=== PATIENT | male | born 1955 | race Caucasian/White ===

== ENCOUNTER 2021-07-11 10:18 | Outpatient (REF) | payer OTHER, SELFPAY | END 2021-07-11 10:19 | disposition home or self-care (01) | LOC: HO.HMGCLDS 10:18 | PROVIDERS: PCP Internal Medicine; Visit Provider Internal Medicine | DX: Z20.822 Contact with and (suspected) exposure to COVID-19 (principal) | CPT/HCPCS: C9803; U0003; U0005 ==

== ENCOUNTER 2025-05-08 23:40 | Inpatient (IN) | payer MEDICARE, SELFPAY ==
--- NOTE | 2025-05-08 | ECG_ITS ---
Test Reason : FALL Blood Pressure : */* mmHG Vent. Rate : 51 BPM Atrial Rate : * BPM P-R Int : * ms QRS Dur : 84 ms QT Int : 478 ms P-R-T Axes : * 17 54 degrees QTcB Int : 440 ms Atrial fibrillation with slow ventricular response Abnormal ECG No previous ECGs available Referred By: Generic ED Physician Electronically Signed By: TERESA LOPEZ MD
--- NOTE | ~2025-05-08 | CT_ITS ---
CLINICAL HISTORY: fall CT cervical spine without contrast Comparison: None provided Findings: Mild motion artifact in the upper cervical spine. Multilevel degenerative change of the cervical spine. There is mild anterolisthesis of C2 on C3 as well as C3 on C4. No acute fractures or dislocations. Visualized intracranial contents are unremarkable. Soft tissues of the neck are normal. No consolidation or effusion at the lung apices. IMPRESSION: No acute findings. This document has been electronically signed by: Jose Carty MD on 05/09/2025 01:23:10
--- NOTE | ~2025-05-08 | US_ITS ---
EXAMINATION: US ABDOMEN LIMITED HISTORY: transaminitis TECHNIQUE: Real-time grayscale ultrasound imaging of the right upper quadrant was performed and images were reviewed. COMPARISON: There are no prior studies available for comparison. FINDINGS: Liver: The right lobe of the liver measures 15.3 cm in size. The left lobe of the liver measures 11.1 cm in size. The liver demonstrates increased echotexture, consistent with steatosis. No focal mass or intrahepatic biliary ductal dilatation is identified. There is normal hepatopedal flow in the portal vein. Gallbladder and biliary tree: The gallbladder is unremarkable, without evidence of calculi, wall thickening, or pericholecystic fluid. There is no sonographic Hanna sign. The common bile duct is normal in caliber measuring 4 mm. Right Kidney: The right kidney measures 12.5 cm in length. The right kidney is unremarkable, without evidence of masses, hydronephrosis, or calculi. Pancreas: The pancreas is obscured by bowel gas. Abdominal aorta and inferior vena cava: The visualized portions of the abdominal aorta and inferior vena cava are normal in caliber. There is no free fluid in the right upper quadrant. US/US abdomen limited IMPRESSION: Hepatic steatosis. The pancreas is not visualized. Electronically signed by: Laci Hou MD 05/09/2025 08:05 AM EDT
--- NOTE | ~2025-05-08 | MR_ITS ---
EXAMINATION: MR BRAIN WITHOUT IV CONTRAST HISTORY: dizziness TECHNIQUE: Sagittal T1, and axial T1, FLAIR, T2, gradient echo, and diffusion weighted MR images of the brain were obtained. COMPARISON: Correlation is made with an unenhanced head CT dated 05/09/2025. FINDINGS: The pituitary is normal in size. The cerebellar tonsils are normally located. There is diffuse prominence of the ventricular system and cortical sulci, consistent with atrophy. Periventricular and subcortical white matter hyperintensities are noted on the FLAIR and T2-weighted images which are nonspecific, but often seen in the setting of small vessel ischemic disease. There is no mass effect or midline shift. No intra or extra-axial fluid collections are identified. There are no foci of restricted diffusion. Normal vascular flow voids are noted in the basilar and carotid arteries. The visualized paranasal sinuses are clear. MR/MR head/brain wo con IMPRESSION: No acute intracranial abnormality. Electronically signed by: Laci Hou MD 05/09/2025 12:50 PM EDT
--- NOTE | ~2025-05-08 | CT_ITS ---
CLINICAL HISTORY: fall CT head without contrast Comparison: None provided Findings: There is motion artifact present. No intra-axial mass, midline shift, hydrocephalus, or acute hemorrhage. Moderately extensive cerebral atrophy. Low attenuation in the periventricular white matter consistent with chronic small-vessel ischemic gliosis. The visualized paranasal sinuses and mastoid air cells are normal. The orbits are within normal limits. There is no acute fracture. Soft tissue swelling in the left supraorbital region. IMPRESSION: 1. No acute intracranial findings. This document has been electronically signed by: Jose Carty MD on 05/09/2025 01:33:41
--- NOTE | ~2025-05-08 | CT_ITS ---
CLINICAL HISTORY: dizziness CT angiography head and neck with contrast. 3D Postprocessing. Comparison: None provided Findings: There is ectasia of the ascending thoracic aorta. There are mild calcific atherosclerotic changes of the carotid bulbs bilaterally. There is no significant stenosis. There are severe calcific atherosclerotic changes of the distal left vertebral artery with severe stenosis. Intracranial arteries are patent. No aneurysm, dissection, hemodynamically significant stenoses, or occlusion. No abnormal intracranial enhancement. The visualized thyroid gland is unremarkable. No cervical mass or fluid collection. Lung apices clear. No acute fracture. There are severe spondylitic changes particularly at the C5-6 and C6-7 levels. There is no evidence of acute vascular injury. IMPRESSION: 1. No evidence of acute vascular injury. 2. Severe calcific atherosclerotic changes distal left vertebral artery with severe stenosis. 3. Mild calcific atherosclerotic changes of the carotid bulbs bilaterally. 4. Patent intracerebral vasculature. This document has been electronically signed by: Dejan Hanson MD on 05/09/2025 07:48:51
[2025-05-08 23:51] VITALS: BP 118/80; BP 123/78; PULSE 56; PULSE 58; RESP 15; TEMP 37.1; O2SAT 98; BMI 27.5
[2025-05-09] VITALS (8 sets, daily range): BP systolic 95–136; BP diastolic 64–91; PULSE 54–96; RESP 16–18; TEMP 36.2–36.9; O2SAT 93–100; BMI 25.7
--- NOTE | 2025-05-09 00:34 | PC.NURSE ---
pt biba from home, reports trip and fall with head strike. endorses etoh use and thinners at this time. pt has lac to left eye brow and lac to under the left eye. bleeding controlled. pt lac cleaned with NS and non stick placed at this time. labs obtained. pt refused c collar
[2025-05-09 00:39] LABS: INTERNATIONAL NORM RATIO 1.2 (0.9-1.1); Prothrombin Time 13.6 SEC (10.9-12.4)
[2025-05-09 00:52] LABS: Alanine Aminotransferase 105 U/L (0-40); Albumin Level 4.3 g/dL (3.5-5.0); Alkaline Phosphatase 85 U/L (39-117); Anion Gap 15 (12-20); Aspartate Amino Transferase 115 U/L (5-37); Blood Urea Nitrogen 16 mg/dL (9-16); Calcium 8.8 mg/dL (8.4-10.2); Carbon Dioxide 24 mmol/L (22-29); Chloride 89 mmol/L (96-108); Creatinine Clr Calc Pharmacy 71.8; Estimated Glomerular Filt Rate > 60; Potassium 3.4 mmol/L (3.3-5.1); Sodium 125 mmol/L (135-145); Total Protein 6.7 g/dL (6.5-8.0)
--- OUTSIDE RECORDS SUMMARY | 2025-05-09 01:02 | XMS_ITS | Clinical Summary ---
Author Organization [facility] [employer] Address [address] [place], [place] [address] Phone Care Team Providers Care Chief Strategy Officer Name Role Phone Heather Lai MD Primary Care Prov ider Allergies No known active allergies Medications Eliquis 5 mg tablet Take 1 tablet (5 mg total) by mouth 2 (two) times a day. 180 tablet 1 11/08/2024 Active metoprolol succinate (TOPROL-XL) 25 mg 24 hr tablet Take 1 tablet (25 mg total) by mouth 1 (one) time each day. 90 tablet 1 11/08/2024 Active amLODIPine (NORVASC) 5 mg tablet Take 1 tablet (5 mg total) by mouth 1 (one) time each day. 90 each 1 02/16/2025 Active atorvastatin (LIPITOR) 20 mg tablet Take 1 tablet (20 mg total) by mouth 1 (one) time each day. 90 each 1 02/16/2025 Active Active Problems Problem Noted Date Diagnosed Date Chronic alcoholic hepatitis (CMS/HCC V28) 2024 Thoracic aortic aneurysm without rupture (CMS/HC C V24) 02/16/2025 Assessment & Plan (02/19/2025 11:31 PM EDT): Updating echocardiogram. Coronary artery disease 12/11/2021 Assessment & Plan (02/19/2025 11:31 PM EDT): Patient has evidence of coronary disease both on nuclear medicine scan and echocardiogram showing apical infarct no residual ischemia in the past. He continues on metoprolol. He is not on aspirin but reports some issues with rectal bleeding. We will update CBC and patient encouraged to get hold of a primary care provider and possible GI consultation. I will restart atorvastatin and update lipid panel, CMP. Will also arrange for nuclear stress test to evaluate exertional shortness of breath symptoms. I have reviewed with the patient the importance of a heart healthy lifestyle which includes eating a low-fat low-salt diet, getting regular exercise, maintaining a healthy weight, not smoking, and following up with routine medical care. Obstructive sleep apnea 03/15/2021 Overview (02/16/2025): [facility] Home Sleep Apnea Test: Date 03/04/2021; Wt 190#; BMI 27; DEVIN (AHI) 5, AI 2; HI 4; Unclassified apneas 0; Obstructive apneas 12; Central apneas 1; Mixed apneas 0; hypopneas 23; average oxygen saturation 94% (lowest 83% without saturations <88% for 5% or more of study) - Obstructive Sleep Apnea - mild; mostly hypopneas and obstructive apneas; without sleep related hypoventilation by 2020 home sleep apnea test. Diastolic dysfunction 12/22/2019 Overview (02/19/2025): ECHO showing mild concentric left ventricular hypertrophy, mildly reduced left systolic function with EF of 45 to 50%, mild apical septum and apex hypokinetic, mildly abnormal left ventricular diastolic function, sinus of Valsalva 4.7 cm, a sending 4.7 cm and transfer 3.3 cm aorta dilatation 02/07/21 ECHO: moderate asymmetric septal hypertrophy, LVEG 60-65%, no definite wall motion abnormalites, Assessment & Plan (02/19/2025 11:31 PM EDT): Patient denies any clinical symptoms of heart failure and appears euvolemic on examination. We will update an echocardiogram. Carotid stenosis, bilateral 10/27/2019 Overview (02/16/2025): 09/2019: 0-49% stenosis of the internal carotid arteries bilaterally. Paroxysmal atrial fibrillation (CMS/HCC V24, CMS /HCC V28) 09/26/2019 Overview (02/16/2025): Dr. Ledezma Last Assessment & Plan: Patient with history of paroxysmal atrial fibrillation. Supposed be on twice daily dosing of Eliquis. So he taken it once a day because he is complained of hemorrhoidal bleeding I have asked him to get his hemorrhoids looked. HTN (hypertension), benign 12/08/2014 Assessment & Plan (02/19/2025 11:31 PM EDT): BP is elevated today with reading of 142/98. We will add amlodipine 5mg daily today. Hyperlipidemia 12/08/2014 Overview (02/16/2025): Last Assessment & Plan: Patient with history of hyperlipidemia. I would not start statins on this patient right now given the significant elevation in his LFTs Assessment & Plan (02/19/2025 11:31 PM EDT): We will update lipids today. PVD (peripheral vascular disease) (CMS/HCC V24) 12/08/2014 Overview (02/16/2025): Was seeing Dr. Quiñones Encounters Date Type Department Care Team Description 04/25/2025 11:30 AM EDT Office Visit Adult Medicine [address] [phone] Heather Coyne MD Alcohol use disorder (Primary Dx); Dizziness; Chronic alcoholic hepatitis (CMS/HCC V28); Paroxysmal atrial fibrillation (CMS/HCC V24, CMS/HCC V28) 04/20/2025 5:32 PM EDT - 04/20/2025 9:16 PM EDT Emergency [facility] Emergency [address] [place] [id number] Fara Stewart, DO Alcohol use (Primary Dx) Discharge Disposition: Home or Self Care 02/16/2025 8:40 AM EDT Office Visit [facility] [address] [place] [address] Tamera Benavides NP Atrial fibrillation, unspecified type ([facility]/HCC V24, [facility] V28) (Primary Dx); Coronary artery disease involving blackfeet coronary artery of blackfeet heart with unstable angina pectoris (CMS/HCC V24, CMS/HCC V28); Diastolic dysfunction; Mixed hyperlipidemia; HTN (hypertension), benign; Aneurysm of ascending aorta without rupture ([facility] V24) from Last 3 Months Immunizations Name Administration Dates Next Due Influenza Quadravalent, MDCK , 0.5ml, preservative free (Flucelvax) 6mo and older 07/08/2021,11/25/2018 Influenza Quadrivalent, 0.5m l, preservative free (Fluarix; FluLaval; Fluzone) ages 6mo and older (Afluria) 3yo and older 10/07/2023,07/27/2020 Influenza trivalent, 0.5mL ( Fluzone High-dose) 65yo and older 07/07/2022 Influenza, Unspecified 05/10/2015 Pneumococcal conjugate 13 va lent (Prevnar 13, PCV13) 2mo and older 07/07/2022 Pneumococcal conjugate 20 va lent (Prevnar 20, PCV 20) 2mo and older 12/31/2023 Tdap Tetanus diptheria acell ular pertussis (Boostrix; Adacel) 7yo and older 11/25/2018 Surgical History Surgery Date Site/Laterality Comments TONSILLECTOMY PROCEDURE: HISTORICAL TONSILLECTOMY Medical History Medical History Date Comments Elevated PSA 05/13/2022 DX:Elevated PSA; COMMENT: [facility], TRUS is recommended as of 04/17/2022 Chronic ischemic heart disease D X:Chronic ischemic heart disease Rectal bleed DX:Rectal bleed Straining with stools DX:Straini ng with stools Hemorrhoids DX:Hemorrhoids Elevated LFTs DX:Elevated LFTs Fatty liver DX:Fatty liver Alcohol use with alcohol-ind uced disorder ([facility] V24) DX:Alcohol use with alcohol- induced disorder (HCC) Family History Medical History Relation Name Comments Heart attack Brother Heart failure Father Prostate cancer Paternal Grandfather Heart failure Sister Lung cancer Sister smoker Relation Name Status Comments Brother Daughter Alive Father Maternal Grandfather Maternal Grandmother Mother Paternal Grandfather Paternal Grandmother Sister Son Alive Social History Tobacco Use Types Packs/Day Years Used Date Smoking Tobacco: Former Cigarettes Q uit: 10/12/2011 Smokeless Tobacco: Never Tobacco Cessation:Counseling Given: Not Answered Alcohol Use Standard Drinks/Week Comments Yes 0 (1 standard drink = 0.6 oz pur e alcohol) couple beers/liquor daily Sex and Gender Information Value Date Recorded Sex Assigned at Male 01/06/2025 8:44 PM EDT Legal Sex Male 3:57 PM EST Gender Identity Male 01/06/2025 8:44 PM EDT Sexual Orientation Straight 01/06/2025 8: 44 PM EDT Obstetrics History Last Filed Vital Signs Vital Sign Reading Time Taken Comments Blood Pressure 100/60 04/25/2025 11:36 AM EDT Pulse 52 04/25/2025 11:36 AM EDT Temperature 36.6 C (97.9 F) 04/25/2025 11:36 AM EDT Respiratory Rate 16 04/25/2025 11:36 AM EDT Oxygen Saturation 98% 04/20/2025 6:03 PM EDT Inhaled Oxygen Concentration - - Weight 84.4 kg (186 lb) 04/25/2025 11:36 AM EDT Height 176.8 cm (5' 9.6 ) 04/20/2025 6:03 PM EDT Body Mass Index 27 04/20/2025 6:03 PM EDT Plan of Treatment Upcoming Encounters Date Type Department Care Team (Late st Contact Info) Description 05/18/2025 9:00 AM EDT Ancillary Procedure [facility] - [address] [facility] [address] [place] [address] Health Maintenance Due Date Last Done Comments Hepatitis A Vaccines (1 of 2 - Risk 2-dose series) 1975 Zoster Vaccines (1 of 2) 2006 Hepatitis B Vaccines (1 of 3 - Risk 3-dose series) 2016 RSV Immunization Adult Patients (1 - Risk 60-74 years 1-dose series) 2016 Abdominal Aortic Aneurysm (AAA) Screen 09/19/2022 Social Influencers of Health Screening 09/19/2022 Colorectal Cancer Screening: Colonoscopy 11/25/2023 11/25/2013 COVID-19 Vaccine ( season) 2024 10/15/2021, 01/10/2021 Depression Screening 10/12/2024 12/31/2023 Medicare Annual Wellness Visit 12/30/2024 12/31/2023 Influenza Vaccine (#1) 2025 , 07/07/2022, 07/08/2021, Additional history exists Falls Risk Assessment 08/24/2025 08/24/2024, 024 Hypertension/CHF/CAD Annual BMP Blood Test 04/20/2026 04/20/2025, 02/23/2025, 08/24/2024, Additional history exists DTaP,Tdap,and Td Vaccines (2 - Td or Tdap) 11/25/2028 11/25/2018 Cholesterol Screening (Lipid Panel) 02/23/2030 02/23/2025, 10/21/2023 Hepatitis C Screening Completed 04/23/2017 Pneumococcal Vaccine: 50+ Years Completed 12/31/2023, 07/07/2022 HIB Vaccines Aged Out No longer eligi ble based on patient's age to complete this topic HPV Vaccines Aged Out No longer eligi ble based on patient's age to complete this topic IPV Vaccines Aged Out No longer eligi ble based on patient's age to complete this topic MMR Vaccines Aged Out No longer eligi ble based on patient's age to complete this topic Meningococcal ACWY Vaccine Aged Out N o longer eligible based on patient's age to complete this topic Meningococcal B Vaccine Aged Out No l onger eligible based on patient's age to complete this topic RSV Immunization Patients Under 20 months Aged Out No longer eligible based on patient's age to complete this topic Varicella Vaccines Aged Out No longer eligible based on patient's age to complete this topic Procedures Procedure Name Priority Date/Time Associated Diagnosis Comments MAGNESIUM STAT 04/20/2025 8:33 PM EDT COMPREHENSIVE METABOLIC PANEL STAT 04/20/2025 8:33 PM EDT CBC WITH AUTO DIFFERENTIAL STAT 04/20/2025 6:40 PM EDT CBC AND DIFFERENTIAL STAT 04/20/2025 6:40 PM EDT CBC WITH AUTO DIFFERENTIAL Routine 02/23/2025 11:29 AM EDT Atrial fibrillation, unspecified type (CMS/HCC V24, CMS/HCC V28) COMPREHENSIVE METABOLIC PANEL Routine 02/23/2025 11:29 AM EDT HTN (hypertension), benign CBC AND DIFFERENTIAL Routine 02/23/2025 11:29 AM EDT Atrial fibrillation, unspecified type (CMS/HCC V24, CMS/HCC V28) LIPID PANEL WITH REFLEX TO DIRECT LDL Routine 02/23/2025 11:29 AM EDT Mixed hyperlipidemia ECG 12-LEAD Routine 02/16/2025 8:47 AM EDT Atrial fibrillation, unspecified type (CMS/HCC V24, CMS/HCC V28) DEPRESSION SCREENING Routine 12/31/2023 FALLS RISK ASSESSMENT Routine 12/31/2023 HEPATITIS C SCREENING Routine 04/23/2017 COLONOSCOPY Routine 11/25/2013 from Last 3 Months or Most Recently Relevant to Health Maintenance Results * (ABNORMAL) Magnesium (04/20/2025 8:33 PM EDT) Magnesium 1.6(L) 1.9 - 2.6 mg/dL LAB CHEMISTRY METHOD 04/20/2025 9:29 PM EDT [facility] Blood Venous blood specimen / Unknown Venipuncture / Unknown 04/20/2025 8:33 PM EDT 04/20/2025 8:57 PM EDT Fara Stewart DO LAB BLOOD ORDERABLES [place] l Result [facility] [address] [place] [address], * (ABNORMAL) Comprehensive metabolic panel (04/20/2025 8:33 PM EDT) Only the most recent of2 resultswithin the time period is included. Sodium 139 133 - 145 mmol/L LAB CHEMISTRY METHOD 04/20[facility]2025 9:[facility] Potassium 3.5 3.5 - 5.5 mmol/L LAB CHEMISTRY METHOD 04/20/2025 9:31 PM [facility] Chloride 105 96 - 110 mmol/L LAB CHEMISTRY METHOD 04/20/2025 9:31 PM [facility] CO2 26 21 - 32 mmol/L LAB CHEMISTRY METHOD 04/20/2025 9:31 PM [facility] Anion Gap 8 3 - 11 LAB CHEMISTRY METHOD 04/20/2025 9:31 PM [facility] Glucose 132(H) 70 - 100 mg/dL LAB CHEMISTRY METHOD 04/20/2025 9:31 PM [facility] BUN 9 5 - 25 mg/dL LAB CHEMISTRY METHOD 04/20/2025 9:31 PM [facility] Creatinine 0.76 0.70 - 1.30 mg/dL LAB CHEMISTRY METHOD 04/20/2025 9:31 PM [facility] eGFR 98 >=60 mL/min/1. 73m2 LAB CHEMISTRY METHOD 04/20/2025 9:31 PM [facility] Comment:Calculation based on the Chronic Kidney Disease Epidemiology Collaboration (CKD-EPI) equation refit without adjustment for race. BUN/Creatinine Ratio 11.8 LAB CHEMISTRY METHOD 04/20/2025 9:31 PM [facility] Calcium 9.0 8.5 - 10.5 mg/dL LAB CHEMISTRY METHOD 04/20/2025 9:31 PM EDT [facility] AST (SGOT) 71(H) 10 - 42 unit/L LAB CHEMISTRY METHOD 04/20/2025 9:31 PM EDT [facility] ALT (SGPT) 63(H) 10 - 60 unit/L LAB CHEMISTRY METHOD 04/20/2025 9:31 PM EDT [facility] Alkaline Phosphatase 110 42 - 121 unit/L LAB CHEMISTRY METHOD 04/20/2025 9:31 PM EDT [facility] Total Protein 7.2 6.0 - 8.0 g/dL LAB CHEMISTRY METHOD 04/20/2025 9:31 PM EDT [facility] Albumin 4.0 3.2 - 5.0 g/dL LAB CHEMISTRY METHOD 04/20/2025 9:31 PM [facility] Total Bilirubin 0.9 0.0 - 1.4 mg/dL LAB CHEMISTRY METHOD 04/20/2025 9:31 PM EDT [facility] Blood Venous blood specimen / Unknown Venipuncture / Unknown 04/20/2025 8:33 PM EDT 04/20/2025 8:57 PM EDT us Fara Stewart DO LAB BLOOD ORDERABLES [place] l Result [facility] [address] [place] [address], * (ABNORMAL) CBC auto differential (04/20/2025 6:40 PM EDT) Only the most recent of2 resultswithin the time period is included. WBC 5.7 4.8 - 10.8 K/mcL LAB HEMETOLOGY METHOD 04/20/2025 7:27 PM EDT [facility] RBC 4.40(L) 4.50 - 5.50 M/mcL LAB HEMETOLOGY METHOD 04/20/2025 7:27 PM EDT [facility] Hemoglobin 15.2 13.5 - 17.5 g/dL LAB HEMETOLOGY METHOD 04/20/2025 7:27 PM [facility] Hematocrit 42.7 42.0 - 54.0 % LAB HEMETOLOGY METHOD 04/20/2025 7:27 PM [facility] MCV 97.7 79.0 - 98.0 FL LAB HEMETOLOGY METHOD 04/20/2025 7:27 PM [facility] MCH 34.8(H) 27.0 - 32.0 pcg LAB HEMETOLOGY METHOD 04/20/2025 7:27 PM [facility] MCHC 35.6 32.0 - 37.0 g/dL LAB HEMETOLOGY METHOD 04/20/2025 7:27 PM [facility] RDW 11.8 11.0 - 15.0 % LAB HEMETOLOGY METHOD 04/20/2025 7:27 PM [facility] Platelets 141 130 - 400 K/mcL LAB HEMETOLOGY METHOD 04/20/2025 7:27 PM [facility] MPV 10.1 7.0 - 11.0 FL LAB HEMETOLOGY METHOD 04/20/2025 7:27 PM [facility] NRBC 0.0 <1.0 % LAB HEMETOLOGY METHOD 04/20/2025 7:27 PM [facility] NRBC Absolute 0.00 <0.10 K/mcL LAB HEMETOLOGY METHOD 04/20/2025 7:27 PM [facility] Neutrophils Relative 51.9 % LAB HEMETOLOGY METHOD 04/20/2025 7:27 PM [facility] Lymphocytes Relative 38.4 % LAB HEMETOLOGY METHOD 04/20/2025 7:27 PM [facility] Monocytes Relative 7.9 % LAB HEMETOLOGY METHOD 04/20/2025 7:27 PM EDT [facility] Eosinophils Relative 0.9 % LAB HEMETOLOGY METHOD 04/20/2025 7:27 PM EDT [facility] Basophils Relative 0.4 % LAB HEMETOLOGY METHOD 04/20/2025 7:27 PM EDT [facility] Immature Granulocytes Relative 0.5 % LAB HEMETOLOGY METHOD 04/20/2025 7:27 PM EDT [facility] Neutrophils Absolute 2.95 1.50 - 7.00 K/mcL LAB HEMETOLOGY METHOD 04/20/2025 7:27 PM EDT [facility] Lymphocytes Absolute 2.18 1.00 - 5.00 K/mcL LAB HEMETOLOGY METHOD 04/20/2025 7:[facility] Monocytes Absolute 0.45 0.20 - 1.00 K/mcL LAB HEMETOLOGY METHOD 04/20/2025 7:27 PM EDT [facility] Eosinophils Absolute 0.05 0.00 - 0.50 K/mcL LAB HEMETOLOGY METHOD 04/20/2025 7:27 PM EDT [facility] Basophils Absolute 0.02 0.00 - 0.20 K/mcL LAB HEMETOLOGY METHOD 04/20/2025 7:27 PM EDT [facility] Immature Granulocytes Absolute 0.03 0.00 - 0.03 K/mcL LAB HEMETOLOGY METHOD 04/20/2025 7:27 PM EDT [facility] Blood Venous blood specimen / Unknown Venipuncture / Unknown 04/20/2025 6:40 PM EDT 04/20/2025 7:08 PM EDT us Fara Stewart DO LAB BLOOD ORDERABLES [place] l Result [facility] [address] [place] [address], [place] [phone] * (ABNORMAL) Lipid panel with reflex to direct LDL (02/23/2025 11:29 AM EDT) Cholesterol 256(H) 0 - 200 mg/dL LAB CHEMISTRY METHOD 02/23/2025 5:24 PM EDT [facility] Triglycerides 148 0 - 150 mg/dL LAB CHEMISTRY METHOD 02/23/2025 5:24 PM EDT [facility] HDL 103 >=40 mg/dL LAB CHEMISTRY METHOD 02/23/2025 5:24 PM EDT [facility] LDL Calculated 123(H) 0 - 100 mg/dL LAB CHEMISTRY METHOD 02/23/2025 5:24 PM EDT [facility] VLDL Cholesterol Marcelo 29.6 mg/dL LAB CHEMISTRY METHOD 02/23/2025 5:24 PM EDT [facility] Non HDL Chol. (LDL+VLDL) 153(H) <145 mg/dL LAB CHEMISTRY METHOD 02/23/2025 5:24 PM EDT [facility] Chol/HDL Ratio 2.5 0.0 - 4.4 LAB CHEMISTRY METHOD 02/23/2025 5:24 PM EDT [facility] Blood Venous blood specimen / Unknown Venipuncture / Unknown 02/23/2025 11:29 AM EDT 02/23/2025 11:29 AM EDT Tamera Benavides OR MANAGER LAB BLOOD ORDERABLES Final R esult [facility] [address] [place] [address], [place] [phone] * ECG 12 lead (02/16/2025 8:47 AM EDT) Ventricular Rate ECG 80 BPM GEMUSE Atrial Rate 416 BPM GEMUSE QRS Duration 78 ms GEMUSE Q-T Interval 400 ms GEMUSE QTc 461 ms GEMUSE R Dillon 24 degrees GEMUSE T Dillon 1 degrees GEMUSE ECG Interpretation Atrial fibrillation Abnormal ECG When compared with ECG of 24-AUG-2024 16:18, Questionable change in QRS axis Confirmed by MARANDA MALAVE ([id number]) on 02/16/2025 11:00:04 AM GEMUSE 02/16/2025 8:47 AM EDT 02/16/2025 11:00 AM EDT Tamera Benavides OR MANAGER ECG ORDERABLES Final Result GEMUSE * Falls Risk Assessment (12/31/2023) [facility] Falls Risk Assessment abstracted Historical Provider MD HEALTH MAINTENANCE Final Result * Depression Screening (12/31/2023) Pathologist [facility] Depression Screening abstracted Result [facility] Provider MD HEALTH MAINTENANCE Final Result * Hepatitis C Screening (04/23/2017) Pathologist [facility] Hepatitis C Screening abstracted Result [facility] Provider MD HEALTH MAINTENANCE Final Result * Colonoscopy (11/25/2013) Pathologist [facility] Colonoscopy No interpreta tion,abstr acted Anatomical Region Laterality Modality Other Historical Provider MD HEALTH MAINTENANCE Final Result from Last 3 Months or Most Recently Relevant to Health Maintenance Insurance [facility] [place] [id number] Care Teams Chief Strategy Officer Relationship Specialty Start Date End Date Heather Lai MD [address] [place] [phone] PCP - General Internal Medicine 08/24/24
[2025-05-09 01:06] LABS: Hematocrit 37.0 % (42.0-52.0); Hemoglobin 13.6 g/dl (14.0-18.0); Imm Gran Abs Auto 0.03 X10*3/uL (0.00-0.03); Imm Gran Pct Auto 0.4 % (0.0-0.4); Lymphocytes Absolute Auto 2.5 X10*3/uL (1.2-4.9); MANUAL DIFF FLAG SCAN; Mean Corpuscular HGB Conc 36.8 g/dl (31.0-36.0); Mean Corpuscular Hemoglobin 34.3 pg (27.0-33.0); Mean Corpuscular Volume 93.4 fL (80.0-98.0); NRBC Abs Auto 0.000 X10*3/uL (0.0-0.012); NRBC Pct Auto 0.0 /100WBC (0.0-0.2); PLT CLUMP 1; Platelet Count 108 X10*3/uL (160-400); Red Blood Count 3.96 X10*6/uL (4.60-5.80); SCAN SMEAR FLAG 1; White Blood Count 6.9 X10*3/uL (4.8-10.8)
--- NOTE | 2025-05-09 01:26 | MHC.EDTECH ---
This slot technician ambulated patient to the bathroom. Patient is unsteady, wasn't able to urinate. Was brought back to his stretcher via wheelchair.
--- NOTE | 2025-05-09 02:23 | PC.NURSE ---
pt 1 assist to bathroom at this time
--- NOTE | 2025-05-09 04:18 | ED.FALL ---
HPI - Fall General Chief Complaint: Fall Stated Complaint: ETOH Time Seen by Provider: 05/09/25 00:28 Source: patient and EMS Mode of arrival: EMS Limitations: altered mental status (intoxication) History of Present Illness ED Provider: Dr. Ana María Horton HPI Narrative: 69-year-old male with history of hypertension, hyperlipidemia, atrial fibrillation on Eliquis, alcohol use disorder presenting after a fall that occurred at home. Patient is unable to give many details regarding the fall. He is currently intoxicated. Thinks that he might have fallen out of bed and hit his head. Unclear if there was any loss of consciousness. Patient admits to frequent falls lately. States he feels very unsteady on his feet. Understands that when he is intoxicated that this can be exacerbated but he feels that the level of unsteadiness is worse than what he would expect with his current level of intoxication. Denies other illicit substance use. He is a smoker. Related Data Home Medications ?Medication ?Instructions ?Recorded ?Confirmed amlodipine 5 mg tablet 5 mg PO DAILY 05/09/25 05/09/25 apixaban 5 mg tablet (Eliquis) 5 mg PO BID 05/09/25 05/09/25 atorvastatin 20 mg tablet 20 mg PO DAILY 05/09/25 05/09/25 metoprolol succinate 25 mg 25 mg PO DAILY 05/09/25 05/09/25 tablet,extended release 24 hr Previous Rx's ?Medication ?Instructions ?Recorded naltrexone 50 mg tablet 50 mg PO DAILY #30 tabs 05/10/25 thiamine HCl (vitamin B1) 100 mg 100 mg PO DAILY #30 tabs 05/10/25 tablet Allergies Allergy/AdvReac Type Severity Reaction Status Date / Time No Known Allergies (No Known Allergy Verified 05/08/25 23:55 Allergies*) Review of Systems Review of Systems: Yes Unobtainable due to mental status (intoxcated) [facility] Past Medical History Attestation statement: The following information was validated with the patient. [facility] Narrative: HTN, HLD, Afib on Eliquis, daily EtOH use, tobacco use Source: nursing notes reviewed Medical History (Updated 05/18/25 @ 00:02 by Background Daemon) Bradycardia Unsteady gait Alcohol intoxication Unwitnessed fall Laceration of left eyebrow without complication Mild intermittent asthma HLD (hyperlipidemia) Hypertension Persistent atrial fibrillation Alcohol use disorder Social History Social History Household Members: None Housing: Apartment Do you presently have visiting nurse or other home services: No Alcohol intake: current Alcohol intake frequency: 3 or more drinks per day Alcohol type: hard liquor Patient Tobacco Use Status: Former Tobacco user Tobacco use type: Cigarette e-Cigarette/Vaping Use: Never Used service: No Physical Exam Exam: Exam: GENERAL: Appears intoxicated, GCS 13, eyes open to voice, slurred speech, no acute distress. SKIN: Normal skin color for ethnicity, warm, dry, no rashes noted, laceration above L eyebrow 2cm, profusely bleeding, associated hematoma/contusion. HEENT: Normocephalic, no stridor, posterior oropharynx nonerythematous, no racoon's eyes, no hair sign, dentition intact, EOMI, pupils are 3mm bilaterally, reactive to light. NECK: Soft, supple, no step-offs, no deformities, no lymphadenopathy. CHEST: Heart regular tachycardia, no murmurs, symmetric chest rise and fall. PULMONARY: Clear to auscultation bilaterally, diminished at the bases, no labored breathing, no wheezes/rhales/rhonchi. ABDOMINAL: Soft, nondistended, positive bowel sounds in all quadrants. : Deferred. MUSCULOSKELETAL: Normal tone, full range of motion, no deformities, no peripheral edema. NEURO: GCS 13, eyes open to voice, slightly slurred speech, CN II through XII intact, equal strength and sensation bilateral upper and lower extremities, no focal neurologic deficits. PSYCHIATRIC: Flat affect, poor eye contact. Vital Signs: Vital Signs: Last Vital Signs Temp 97.7 F 05/10/25 11:41 Pulse 98 05/10/25 11:41 Resp 18 05/10/25 11:41 BP 112/79 05/10/25 11:41 Pulse Ox 99 05/10/25 11:41 O2 Del Method Room Air 05/10/25 11:41 BMI result Body Mass Index 27.5 Medications Administered Discontinued Medications Generic Name Dose Route Start Last Admin Trade Name Freq PRN Reason Stop Dose Admin Apixaban 5 mg 05/09/25 09:00 05/10/25 08:17 Apixaban 5 Mg Tablet PO 5 mg BID JESSICA Administration Folic Acid 1 mg 05/09/25 09:00 05/10/25 08:16 Folic Acid 1 Mg Tablet PO 05/12/25 08:59 1 mg DAILY JESSICA Administration Lactated Ringer's 1,000 mls @ 50 mls/hr 05/09/25 05:30 05/09/25 13:56 Lr IVCONT Infused .Q20H JESSICA Infusion Sodium Chloride 1,000 mls @ 50 mls/hr 05/09/25 13:30 05/10/25 07:36 Ns IVCONT Infused .Q20H JESSICA Infusion Iohexol 70 ml 05/09/25 06:33 05/09/25 06:35 Iohexol 350 Mg/Ml 100 Ml Infus..Btl IV 05/09/25 06:34 70 ml ONCE ONE Administration Lorazepam 1 mg 05/09/25 06:40 05/10/25 08:19 Lorazepam 1 Mg Tablet PO 05/13/25 06:39 1 mg Q4H PRN Administration Breakthrough alcohol withdrawa Multivitamins/Vitamin C 1 tab 05/09/25 09:00 05/10/25 08:16 Multivitamin Tablet PO 05/12/25 08:59 1 tab DAILY JESSICA Administration Omeprazole 20 mg 05/09/25 06:30 05/10/25 05:11 Omeprazole 20 Mg Capsule. PO 20 mg DAILY@0630 JESSICA Administration Oxycodone HCl 5 mg 05/10/25 08:05 05/10/25 13:30 Oxycodone Hcl Immed Release 5 Mg Tablet PO 5 mg Q6H PRN Administration Pain, Moderate(Pain Scale 4-6) Phenobarbital 60 mg 05/09/25 21:00 05/10/25 08:17 Phenobarbital 30 Mg Tablet PO 05/11/25 09:01 60 mg BID JESSICA Administration Protocol Phenobarbital Sodium 310 mg 05/09/25 12:00 05/09/25 13:02 Phenobarbital Sodium 130 Mg/Ml Im Once IM 05/09/25 12:01 310 mg ONCE ONE Administration Protocol Phenobarbital Sodium 233 mg 05/09/25 15:00 05/09/25 20:15 Phenobarbital Sodium 130 Mg/Ml Vial Im Q3hx2 IM 05/09/25 18:01 Not Given Q3H JESSICA Protocol Sodium Chloride 3 ml 05/09/25 08:00 05/10/25 08:17 0.9 % Sodium Chloride Flush 3 Ml Syringe IVFLUSH Not Given QSHIFT JESSICA Thiamine HCl 100 mg 05/09/25 09:00 05/10/25 08:16 Thiamine Hcl 100 Mg Tablet PO 05/12/25 08:59 100 mg DAILY JESSICA Administration Procedures Laceration Laceration 1: Site: face (eyebrow) Side (If applicable): left Size (cm): 2 Description: linear Depth: simple, single layer Pre-repair: wound explored, irrigated extensively and deep structures intact Skin layer closed with: nylon Size (cm): 5-0 Number of sutures: 4 Technique: simple, interrupted Medical Decision Making Medical Decision Making [facility] Narrative: Patient presents today with chief complaint of facial trauma. Different diagnosis on this patient includes intracranial hemorrhage, skull fracture, neck injury including fracture or spinal cord pathology. Other diagnoses considered would include laceration, abrasion, ligamentous injury, among others. Based on my physical exam, the ordered imaging modalities are indicated. The patient specifically does not show any signs of central cord syndrome as evidenced by equal strength in the upper extremities with normal two-point discrimination. Sensation is not altered. GCS is appropriate for his level of intoxication. Patient is neurovascularly intact. There are no signs of vascular emergency. No signs of shock. No respiratory distress. Laceration repaired. Patient tolerated procedure very well. He is notably hyponatremic with a sodium of 125. Likely secondary to beer potomania. LFTs are slightly elevated as well. Plan for admission for further care and evaluation. Patient understands and agrees with plan for admission. Admitted in guarded condition. Differential Diagnosis Differential Diagnoses: The differential diagnosis associated with the presentation includes (as above) Admission/Observation Consideration of admission/observation: Escalation of care including admission/observation considered Consult Healthcare Provider Management of the patient was discussed with: Hospitalist Lab Data [facility] Lab Attestation statement: I reviewed the patient's lab results. 05/10/25 06:11 05/10/25 06:11 Labs: Lab Results 05/09/25 Range/Units 00:29 WBC 6.9 (4.8-10.8) X10*3/uL RBC 3.96 L (4.60-5.80) X10*6/uL Hgb 13.6 L (14.0-18.0) g/dl Hct 37.0 L (42.0-52.0) % MCV 93.4 (80.0-98.0) fL MCH 34.3 H (27.0-33.0) pg MCHC 36.8 H (31.0-36.0) g/dl RDW 11.9 (11.0-16.0) % Plt Count 108 L (160-400) X10*3/uL MPV 9.7 (9.4-12.4) fL Immature Gran % (Auto) 0.4 (0.0-0.4) % Neut % (Auto) 52.1 (45-73) % Lymph % (Auto) 37.0 (20-40) % [place] % (Auto) 8.9 (2-11) % Eos % (Auto) 1.5 (0-4) % Baso % (Auto) 0.1 (0-2) % Lymph # (Auto) 2.5 (1.2-4.9) X10*3/uL [place] # (Auto) 0.6 (0.1-1.2) X10*3/uL Eos # (Auto) 0.1 (0.0-0.4) X10*3/uL Baso # (Auto) 0.0 (0.0-0.2) X10*3/uL Abs Immat Gran (auto) 0.03 (0.00-0.03) X10*3/uL Absolute Neuts (auto) 3.6 (2.0-8.3) x10*3/uL Absolute Nucleated RBC 0.000 (0.0-0.012) X10*3/uL Nucleated RBC % (auto) 0.0 (0.0-0.2) /100WBC Smear Tech's Comments VERIFIED PT 13.6 H (10.9-12.4) SEC INR 1.2 H (0.9-1.1) Sodium 125 L (135-145) mmol/L Potassium 3.4 (3.3-5.1) mmol/L Chloride 89 L (96-108) mmol/L Carbon Dioxide 24 (22-29) mmol/L Anion Gap 15 (12-20) BUN 16 (9-16) mg/dL Creatinine 1.08 (0.5-1.4) mg/dL Estim Creat Clear Calc 71.8 Estimated GFR > 60 Random Glucose 115 (60-115) mg/dL Calcium 8.8 (8.4-10.2) mg/dL Iron 65 (45-160) mcg/dL TIBC 252 (228-428) mcg/dL % Saturation 26 (15-50) % Unsat Iron Binding 187 ug/dL Total Bilirubin 1.3 H (0.0-1.0) mg/dL AST 115 H (5-37) U/L ALT 105 H (0-40) U/L Alkaline Phosphatase 85 (39-117) U/L Total Protein 6.7 (6.5-8.0) g/dL Albumin 4.3 (3.5-5.0) g/dL Ethyl Alcohol 373 H* mg/dL Radiology Impression Discussion of test interpretation with radiology: I have reviewed the radiologist's reading. Radiologist Impression: no bleed or fracture on head/neck CT. Independent Historian Clinical information obtained from an independent historian. History obtained from or confirmed by: EMS Chronic Conditions Patient?s care impacted by: Hypertension and Other (afib on eliquis) Social Determinants Patient?s care significantly limited by Social Determinants of Health including: Alcoholism and drug addiction in family Discharge Plan Discharge Clinical Impression: Laceration of left eyebrow without complication, Unwitnessed fall, Closed head injury, Alcohol intoxication, Unsteady gait, Hyponatremia Patient Disposition: Admitted As Inpatient Interventions: Admission Worksheet (ED) Last Done: 05/09/25 07:41 Discharge Date/Time: 05/09/25 09:02
[2025-05-09] MEDS: Lactated Ringers 1,000 ML 50 ML IVCONT (05:42)
--- NOTE | 2025-05-09 05:47 | PC.NURSE ---
18g placed in back of right forearm, fluids administering at this time. pt assisted with linen change
--- NOTE | 2025-05-09 06:07 | PM.IMHP ---
History of Present Illness Date of Service: 05/09/25 Attending physician on admission: Mansoor Barnhart Chief Complaint: fall Patient is a 69-year-old male with a past medical history significant for persistent AFib on Eliquis, HTN, HLD, mild intermittent asthma and alcohol use disorder, who presented to the ED due to a trip and fall at home with a head strike but denies loss of consciousness. Patient is on Eliquis and his ambivalence about alcohol. He has a laceration to the left eyebrow and under the left eye which was repaired in the ED. the patient denies any chest pain, shortness of breath, nausea or vomiting. He reports chronic dizziness at baseline even while not intoxicated, states he has been diagnosed with vertigo. he also would like resources to quit alcohol. Workup in the ED consistent for hyponatremia, alcohol level of 373, elevated LFTs, bradycardia, normocytic anemia, thrombocytopenia. Patient to be admitted for nephrology consultation due to hyponatremia, addiction med consult and further neurological workup/monitoring. Review of Systems Constitutional: Constitutional: Denies body ache(s), Denies chills, Denies fatigue, Denies fever(s) and Reports headache(s) Eyes: Eyes: Denies change in vision ENT: Reports headache(s), Denies nasal congestion and Denies sore throat Cardiovascular: Cardiovascular: Denies chest pain, Denies rapid heart rate, Denies leg edema, Denies lightheadedness and Denies dyspnea Respiratory: Respiratory: Denies chest congestion, Denies cough, Denies dyspnea and Denies wheezing Gastrointestinal: Gastrointestinal: Denies abdominal pain, Denies melena, Denies nausea and Denies vomiting Genitourinary: Genitourinary: Denies dysuria, Denies urinary frequency and Denies urinary urgency Musculoskeletal: Musculoskeletal: Denies myalgias Integumentary/Breasts: Skin/Breast: Denies rash Neurologic: Denies confusion and Reports headache(s) Psychiatric: Psychiatric: Denies confusion Endocrine: Endocrine: Denies fatigue Hematologic/Lymphatic: Hematologic/Lymphatic: Denies easy bleeding and Denies easy bruising Allergic/Immunologic: Allergic/Immunologic: Denies wheezing [facility] Medical History (Updated 05/09/25 @ 06:12 by Yina Martinez PA-C) Mild intermittent asthma HLD (hyperlipidemia) Hypertension Persistent atrial fibrillation Alcohol use disorder Functional capacity: independent ambulation Social History Alcohol intake: current Alcohol intake frequency: 3 or more drinks per day Alcohol type: hard liquor Patient Tobacco Use Status: Never used Tobacco Smoked in Last 30 Days: No Use of substances other than those prescribed or required for medical reasons: No Advance Directives: No Advance Directives Information Provided: Yes Do you have a plan to hurt others: No Plan Nutrition Risks: No Nutritional Risk Meds Allergies Allergy/AdvReac Type Severity Reaction Status Date / Time No Known Allergies (No Known Allergy Verified 05/08/25 23:55 Allergies*) Active Medications: Current Medications Albuterol/Ipratropium (Albuterol/Iprat 2.5/0.5mg 3 Ml Ampul.Neb) 3 ml INHALE Q4H PRN PRN Reason: Shortness of Breath/Wheezing Calcium Carbonate (Calcium Carbonate 750 Mg Tab.Chew) 750 mg PO Q4H PRN PRN Reason: Heartburn Folic Acid (Folic Acid 1 Mg Tablet) 1 mg PO DAILY [facility] Stop: 05/12/25 08:59 Hydromorphone HCl (Hydromorphone Hcl 0.5 Mg/0.5 Ml Syringe) 0.5 mg IVPUSH Q4H PRN; Protocol PRN Reason: Pain, Severe (Pain Scale 7-10) Lactated Ringer's (Lr) 1,000 mls @ 50 mls/hr IVCONT .Q20H [facility] Last Admin: 05/09/25 05:42 Dose: 50 mls/hr Magnesium Hydroxide (Milk Of Magnesia 30 Ml Oral.Susp) 30 ml PO DAILY PRN PRN Reason: Constipation Melatonin (Melatonin 3 Mg Tablet) 6 mg PO BEDTIME PRN PRN Reason: Insomnia Multivitamins/Vitamin C (Multivitamin Tablet) 1 tab PO DAILY [facility] Stop: 05/12/25 08:59 Omeprazole (Omeprazole 20 Mg Capsule.Dr) 20 mg PO DAILY@0630 [facility] Last Admin: 05/09/25 05:44 Dose: 20 mg Pharmacy Consult (Consult Rx Etoh Phenob Im/Po) 1 each MISCELLANE ONCE PRN PRN Reason: Consult order Sodium Chloride (0.9 % Sodium Chloride Flush 3 Ml Syringe) 3 ml IVFLUSH QSHIFT [facility] Thiamine HCl (Thiamine Hcl 100 Mg Tablet) 100 mg PO DAILY [facility] Stop: 05/12/25 08:59 Physical Exam Vital Signs and Narrative: Vital Signs: Last Vital Signs Temp 98.7 F 05/08/25 23:51 Pulse 54 05/09/25 02:39 Resp 16 05/09/25 02:39 BP 131/87 05/09/25 02:39 Pulse Ox 95 05/09/25 02:39 O2 Del Method Room Air 05/09/25 02:39 BMI result Body Mass Index 27.5 General: AOx3, no acute distress Resp: CTA bilaterally CVS: S1, S2, RRR GI: +BS, NT, no distention Skin: Warm, dry Neuro: Cranial nerves II-XII grossly intact bilaterally. Motor grossly intact bilaterally Extremities: No edema Psych: Appropriate affect Const: General: No confusion Orientation/consciousness: No confusion Neuro: General: No confusion Results Labs 05/09/25 00:29 05/09/25 00:29 Labs: Laboratory Results - last 24 hr 05/09/25 00:29 MCV 93.4 MCH 34.3 H MCHC 36.8 H RDW 11.9 Plt Count 108 L MPV 9.7 Immature Gran % (Auto) 0.4 Neut % (Auto) 52.1 Lymph % (Auto) 37.0 [place] % (Auto) 8.9 Eos % (Auto) 1.5 Baso % (Auto) 0.1 Lymph # (Auto) 2.5 [place] # (Auto) 0.6 Eos # (Auto) 0.1 Baso # (Auto) 0.0 Abs Immat Gran (auto) 0.03 Absolute Neuts (auto) 3.6 Absolute Nucleated RBC 0.000 Nucleated RBC % (auto) 0.0 Smear Tech's Comments VERIFIED PT 13.6 H INR 1.2 H Anion Gap 15 Estim Creat Clear Calc 71.8 Estimated GFR > 60 Random Glucose 115 Calcium 8.8 Total Bilirubin 1.3 H AST 115 H ALT 105 H Alkaline Phosphatase 85 Total Protein 6.7 Albumin 4.3 Ethyl Alcohol 373 H* Assessment and Plan (1) Unwitnessed fall: Status: Acute (2) Unsteady gait: Status: Acute (3) Laceration of left eyebrow without complication: Status: Acute (4) Alcohol intoxication: Status: Acute (5) Hyponatremia: Status: Acute (6) Alcohol use disorder: Status: Acute (7) Transaminitis: Status: Acute (8) Bradycardia: Status: Acute (9) Normocytic anemia: Status: Acute (10) Thrombocytopenia: Status: Acute Plan Patient is a 69-year-old male with a past medical history significant for persistent AFib on Eliquis, HTN, HLD, mild intermittent asthma and alcohol use disorder, who presented to the ED due to a trip and fall at home with a head strike but denies loss of consciousness. Unwitnessed fall/unsteady gait with laceration left eyebrow, likely secondary to alcohol intoxication - alcohol level 373 - head CT negative - CT C-spine negative - EKG with atrial fibrillation, slow ventricular response - MRI head/brain ordered - CTA head/neck ordered - consider PT/OT eval prior to discharge Hyponatremia - sodium 125 - nephrology consult - LR 50 cc/HR - urine electrolytes pending Alcohol use disorder - CIWA q.4h - alcohol level 373 upon arrival - addiction med consult - seizure precautions - phenobarb, and ativan PRN for breakthrough - thiamine, folic acid, multiviamin Transaminitis - likely secondary to alcohol use disorder - check hepatitis panel - ultrasound right upper quadrant Bradycardia - metoprolol held Normocytic anemia - hemoglobin 13.6, hematocrit 37.0, MCV normal 93.4 - check iron panel, B12, folate - no obvious bleeding sources at this time aside from small laceration - monitor CBC Thrombocytopenia - platelets 108 - likely secondary to alcohol use disorder - monitor CBC Persistent AFib - EKG with AFib with slow ventricular response - holding metoprolol - continue Eliquis HTN - med rec pending, holding metoprolol, continue other BP meds when appropriate HLD - continue home meds Mild intermittent asthma, no acute exacerbation - albuterol p.r.n. Full code VTE prophylaxis: Eliquis Patient with unwitnessed fall, likely secondary to alcohol intoxication, complicated by hyponatremia, requiring admission for at least 2 midnights stay for further evaluation and monitoring. Quality Stroke Does the patient have a stroke diagnosis?: No VTE Prior VTE?: No VTE Risk Level:: Medical - moderate - high VTE Device Contraindication: Treatment Not Indicated VTE Drug Contraindication: N/A - Med Ordered
[2025-05-09] MEDS: iohexoL 350 MG/ML 100 ML INFUS..BTL 70 ML IV (06:35)
[2025-05-09 06:58] LABS: Iron 65 mcg/dL (45-160); Percent Iron Saturation 26 % (15-50); Total Iron Binding Capacity 252 mcg/dL (228-428); Unsaturated Iron Binding 187 ug/dL
[2025-05-09 07:20] LABS: HBS Num1 0.00 mIU/mL (0-7.99); HBc Num1 0.12 S/CO (0.00-0.79); HBsAGNum1 0.59 S/CO (0.00-0.99); Hepatitis A Antibody IgM 0.15 Index (0-0.79); Hepatitis B Surface Antigen Negative (Negative); ~HepC Num1 0.12 S/CO (0.00-0.79); ~Hepatitis A Antibody IgM Nonreactive (Nonreactive); ~Hepatitis B Surface Antibody NONREACTIVE (Nonreactive); ~Hepatitis C Antibody Nonreactive (Nonreactive)
[2025-05-09 07:33] LABS: Folate 7.5 ng/mL (> or = 4.0); Vitamin B12 568 pg/mL (200-900)
--- NOTE | 2025-05-09 07:54 | PC.NURSE ---
assumed care of patient at 0645, patient is awake and alert, resp even and unlabored. has been using urinal, patient noted to have repaired lac above left eye, bleeding controlled at this time.
--- NOTE | 2025-05-09 08:22 | PHA.MEDREC ---
Pharmacy Consult ? Medication Reconciliation Pharmacy has completed the medication reconciliation. Spoke to patient at bedside, he knew his medications and stated he took them yesterday morning, but missed his evening Eliquis.
[2025-05-09 08:41] LABS: Anion Gap 15 (12-20); Carbon Dioxide 24 mmol/L (22-29); Chloride 90 mmol/L (96-108); Potassium 3.7 mmol/L (3.3-5.1); Sodium 125 mmol/L (135-145)
--- NOTE | 2025-05-09 10:56 | MHC.CM.PN ---
IMM 05/09/25, Pt. lives alone, PCP is Dr. Heather Beltran at [facility] in [place]. HCP discussed, pt. to complete form here, naming his dtr, Silvia. Pt. has just started with [employer] which is a friend of his, he was not sure how many hours. For DME, he has a walker. He can arrange transport home at DC, DCP: home, with services. CM to follow for DC needs.
--- NOTE | 2025-05-09 11:58 | PC.NURSE ---
pt being transported to MRI for testing, [employer]LO[employer] DIRECTOR found empty bottles of alcohol in pt pockets, charge aide notified
[2025-05-09] MEDS: PHENobarbitaL sodium 130 MG/ML IM ONCE 310 MG IM (13:02)
--- NOTE | 2025-05-09 13:20 | P.CONNP_ITS ---
History of Present Illness Reason for Consult Consult date: 05/09/25 Chief Complaint Chief complaint: Fall History of Present Illness Narrative: 69 y/o male with a medical history of alcohol use disorder (reports has been through detox x6), HTN, asthma, afib on eliquis/ Presented 05/08 evening after tripping and falling at home with head strike, blood alcohol level 373. Serum sodium is 125, transaminitis, thrombocytopenia. Nephrology consulted for hyponatremia. urine sodium <20, urine osm 277. Patient reports he drinks a few beers daily and some whiskey daily, does not specify amounts further. States feeling ok today. States he wants to stop drinking alcohol. Review of Systems Review of Systems Yes all other systems are reviewed and are negative [facility] Past Medical History Medical History (Updated 05/09/25 @ 06:12 by Yina Martinez PA-C) Mild intermittent asthma HLD (hyperlipidemia) Hypertension Persistent atrial fibrillation Alcohol use disorder Social History Social History Household Members: None Housing: Apartment Do you presently have visiting nurse or other home services: No Alcohol intake: current Alcohol intake frequency: 3 or more drinks per day Alcohol type: hard liquor Patient Tobacco Use Status: Former Tobacco user Tobacco use type: Cigarette e-Cigarette/Vaping Use: Never Used service: No Meds Allergies Allergy/AdvReac Type Severity Reaction Status Date / Time No Known Allergies (No Known Allergy Verified 05/08/25 23:55 Allergies*) Active Medications: Current Medications Albuterol/Ipratropium (Albuterol/Iprat 2.5/0.5mg 3 Ml Ampul.Neb) 3 ml INHALE Q4H PRN PRN Reason: Shortness of Breath/Wheezing Apixaban (Apixaban 5 Mg Tablet) 5 mg PO BID [facility] Last Admin: 05/09/25 10:17 Dose: 5 mg Calcium Carbonate (Calcium Carbonate 750 Mg Tab.Chew) 750 mg PO Q4H PRN PRN Reason: Heartburn Folic Acid (Folic Acid 1 Mg Tablet) 1 mg PO DAILY [facility] Stop: 05/12/25 08:59 Last Admin: 05/09/25 10:17 Dose: 1 mg Hydromorphone HCl (Hydromorphone Hcl 0.5 Mg/0.5 Ml Syringe) 0.5 mg IVPUSH Q4H PRN; Protocol PRN Reason: Pain, Severe (Pain Scale 7-10) Sodium Chloride (Ns) 1,000 mls @ 50 mls/hr IVCONT .Q20H JESSICA Lorazepam (Lorazepam 1 Mg Tablet) 1 mg PO Q4H PRN PRN Reason: Breakthrough alcohol withdrawa Stop: 05/13/25 06:39 Last Admin: 05/09/25 10:19 Dose: 1 mg Magnesium Hydroxide (Milk Of Magnesia 30 Ml Oral.Susp) 30 ml PO DAILY PRN PRN Reason: Constipation Melatonin (Melatonin 3 Mg Tablet) 6 mg PO BEDTIME PRN PRN Reason: Insomnia Multivitamins/Vitamin C (Multivitamin Tablet) 1 tab PO DAILY [facility] Stop: 05/12/25 08:59 Last Admin: 05/09/25 10:17 Dose: 1 tab Omeprazole (Omeprazole 20 Mg Capsule.Dr) 20 mg PO DAILY@0630 [facility] Last Admin: 05/09/25 05:44 Dose: 20 mg Pharmacy Consult (Consult Rx Etoh Phenob Im/Po) 1 each MISCELLANE ONCE PRN; Protocol PRN Reason: Consult order Phenobarbital (Phenobarbital 30 Mg Tablet) 60 mg PO BID [facility]; Protocol Stop: 05/11/25 09:01 Phenobarbital (Phenobarbital 30 Mg Tablet) 30 mg PO BID [facility]; Protocol Stop: 05/13/25 09:01 Phenobarbital (Phenobarbital 30 Mg Tablet) 30 mg PO DAILY [facility]; Protocol Stop: 05/15/25 09:01 Phenobarbital Sodium (Phenobarbital Sodium 130 Mg/Ml Vial Im Q3hx2) 233 mg IM Q3H JESSICA; Protocol Stop: 05/09/25 18:01 Sodium Chloride (0.9 % Sodium Chloride Flush 3 Ml Syringe) 3 ml IVFLUSH QSHIFT [facility] Last Admin: 05/09/25 07:19 Dose: Not Given Thiamine HCl (Thiamine Hcl 100 Mg Tablet) 100 mg PO DAILY [facility] Stop: 05/12/25 08:59 Last Admin: 05/09/25 10:17 Dose: 100 mg Home Medications ?Medication ?Instructions ?Recorded ?Confirmed ?Last Taken ?Type amlodipine 5 mg tablet 5 mg PO DAILY 05/09/2505/0905/08/25 09:00 History apixaban 5 mg tablet (Eliquis) 5 mg PO BID 05/09/2505/08/25 09:00 History atorvastatin 20 mg tablet 20 mg PO DAILY 05/09/25 07/2 07/0605/08/25 09:00 History metoprolol succinate 25 mg 25 mg PO DAILY 05/09/2505/08/25 09:00 History tablet,extended release 24 hr Physical Exam Vital Signs: Last Vital Signs Temp 97.2 F 05/09/25 11:14 Pulse 96 05/09/25 11:14 Resp 17 05/09/25 11:14 BP 95/64 05/09/25 11:14 Pulse Ox 97 05/09/25 11:14 O2 Del Method Room Air 05/09/25 11:14 BMI result Body Mass Index 25.7 Const General: no acute distress, alert and awake Resp Effort & Inspection: normal respiratory effort and able to speak in complete sentences Auscultation: clear to auscultation bilaterally Cardio Rate: regular rate Rhythm: regular rhythm Heart sounds: S1 normal heart sound present and S2 normal heart sound present GI Palpation (GI): Soft to palpation and nontender Skin Rashes: no rashes Extrem General: No edema Results Lab Results 05/09/25 00:29 05/09/25 08:24 Lab results: Chemistry 05/09/25 05/09/25 00:29 08:24 Sodium 125 L 125 L Potassium 3.4 3.7 Carbon Dioxide 24 24 BUN 16 Creatinine 1.08 Calcium 8.8 Hematology 05/09/25 00:29 WBC 6.9 Hgb 13.6 L Plt Count 108 L Urine Studies 05/09/25 10:38 Urine Osmolality 277 L Assessment and Plan (1) Alcohol use disorder: Status: Acute (2) Hyponatremia: Status: Acute Plan Hyponatremia likely due to volume depletion Given urine osm, can switch to NS and continue fluids at 50ml/hr May eat and drink normally recommend re-checking sodium level in the a.m. recommend addiction medicine consult to aid in sobriety Continue supportive care Discussed with Dr Wilkes. Procedures Date of Service Date of Service: 05/09/25
[2025-05-09] MEDS: PHENobarbitaL sodium 130 MG/ML VIAL IM Q3Hx2 233 MG IM (17:24)
[2025-05-10] VITALS: BP 141/80; PULSE 85; RESP 16; TEMP 36.9; O2SAT 95
[2025-05-10 03:42] VITALS: BP 124/75; PULSE 62; RESP 16; TEMP 37.1; O2SAT 96
[2025-05-10 06:26] LABS: MANUAL DIFF FLAG NO
[2025-05-10 06:45] LABS: Alanine Aminotransferase 86 U/L (0-40); Albumin Level 4.2 g/dL (3.5-5.0); Alkaline Phosphatase 112 U/L (39-117); Anion Gap 15 (12-20); Aspartate Amino Transferase 96 U/L (5-37); Blood Urea Nitrogen 13 mg/dL (9-16); Calcium 8.8 mg/dL (8.4-10.2); Carbon Dioxide 25 mmol/L (22-29); Chloride 97 mmol/L (96-108); Creatinine Clr Calc Pharmacy 98.2; Estimated Glomerular Filt Rate > 60; Potassium 3.5 mmol/L (3.3-5.1); Sodium 133 mmol/L (135-145); Total Protein 6.6 g/dL (6.5-8.0)
[2025-05-10 06:57] LABS: Hematocrit 38.1 % (42.0-52.0); Hemoglobin 14.1 g/dl (14.0-18.0); Imm Gran Abs Auto 0.02 X10*3/uL (0.00-0.03); Imm Gran Pct Auto 0.4 % (0.0-0.4); Lymphocytes Absolute Auto 1.2 X10*3/uL (1.2-4.9); Mean Corpuscular HGB Conc 37.0 g/dl (31.0-36.0); Mean Corpuscular Hemoglobin 34.7 pg (27.0-33.0); Mean Corpuscular Volume 93.8 fL (80.0-98.0); NRBC Abs Auto 0.000 X10*3/uL (0.0-0.012); NRBC Pct Auto 0.0 /100WBC (0.0-0.2); Red Blood Count 4.06 X10*6/uL (4.60-5.80); White Blood Count 5.0 X10*3/uL (4.8-10.8)
[2025-05-10 07:01] LABS: Platelet Count 94 X10*3/uL (160-400)
[2025-05-10 07:18] VITALS: BP 152/109; PULSE 70; RESP 18; TEMP 36.3; O2SAT 97
[2025-05-10] MEDS: oxyCODONE HCl Immed Release 5 MG TABLET PO ×2 (08:17→13:30)
[2025-05-10 11:41] VITALS: BP 112/79; PULSE 98; RESP 18; TEMP 36.5; O2SAT 99
--- NOTE | 2025-05-10 12:25 | PM.DS ---
DS: Providers Provider Date of Service: 05/10/25 Date of admission: 05/09/25 05:21 Date of discharge: 05/10/25 Primary care physician: Heather Beltran MD Consults: 05/09/25 05:26 Consult to Nephrology Routine Consulting Provider: [facility] Reason for consultation: hyponatremia 05/09/25 06:23 Addiction Medicine Provider Routine Consulting Provider: Addiction Covering Reason for consultation: eoth 05/09/25 10:27 Consult to Wound Care Routine Reason for consultation: laceration to the face DS: Diagnosis Discharge Diagnosis (1) Alcohol use disorder: Status: Acute (2) Hyponatremia: Status: Acute DS: Summary Hospital Course Hospital Course: HPI as per admiting provider: Patient is a 69-year-old male with a past medical history significant for persistent AFib on Eliquis, HTN, HLD, mild intermittent asthma and alcohol use disorder, who presented to the ED due to a trip and fall at home with a head strike but denies loss of consciousness. Patient is on Eliquis and his ambivalence about alcohol. He has a laceration to the left eyebrow and under the left eye which was repaired in the ED. the patient denies any chest pain, shortness of breath, nausea or vomiting. He reports chronic dizziness at baseline even while not intoxicated, states he has been diagnosed with vertigo. he also would like resources to quit alcohol. Workup in the ED consistent for hyponatremia, alcohol level of 373, elevated LFTs, bradycardia, normocytic anemia, thrombocytopenia. Patient to be admitted for nephrology consultation due to hyponatremia, addiction med consult and further neurological workup/monitoring. Hospital course: Patient with unwitnessed fall due to alcohol intoxication was admitted with phenobarb protocol for concerns of alcohol withdrawal. He was initiated on thiamine. Patient with improvement in symptoms prior to discharge. Patient also found to have hypovolemic hypotonic hyponatremia which improved with crystalloid resuscitation. He had elevated liver enzymes secondary to alcohol use disorder. Abdominal ultrasound with hepatic steatosis. Will need close outpatient follow-up with repeat LFTs. CTA head/neck with severe calcific atherosclerotic changes of distal left vertebral artery with severe stenosis. Patient is anticoagulated with Eliquis. Recommend outpatient follow-up. MRI brain without any acute abnormality. He was evaluated by Physical therapy prior to discharge who recommended patient is safe to be discharged home with services. Status at Discharge Functional status at discharge: independent ambulation Overall status at discharge: patient is back to baseline Time Attestation Discharge Coordination Time (in mins): 40 Quality: Safe Use of Opioids Does Pt have an Active Cancer Diagnosis on the Problem List?: No Quality: Stroke Does the patient have a stroke diagnosis?: No Physical Exam Exam: Exam: Middle-aged male lying in bed in no distress Neck supple, no JVD Regular rate and rhythm, S1-S2 heard Regular breath sounds bilaterally, no wheezing or crackles appreciated Abdomen soft nontender, no guarding, no rigidity Patient is awake, alert and oriented to self, place, time and person ; no focal motor deficit Psych: Normal mood No pedal edema Vital Signs: Vital Signs: Last Vital Signs Temp 97.7 F 05/10/25 11:41 Pulse 98 05/10/25 11:41 Resp 18 05/10/25 11:41 BP 112/79 05/10/25 11:41 Pulse Ox 99 05/10/25 11:41 O2 Del Method Room Air 05/10/25 11:41 BMI result Body Mass Index 25.7 DS: Data Data Completed and Pending Labs on day of discharge: Laboratory Results - last 24 hr 05/10/25 06:11 WBC 5.0 RBC 4.06 L Hgb 14.1 Hct 38.1 L MCV 93.8 MCH 34.7 H MCHC 37.0 H RDW 12.1 Plt Count 94 L MPV 10.1 Immature Gran % (Auto) 0.4 Neut % (Auto) 60.8 Lymph % (Auto) 24.8 [place] % (Auto) 12.8 H Eos % (Auto) 0.8 Baso % (Auto) 0.4 Lymph # (Auto) 1.2 [place] # (Auto) 0.6 Eos # (Auto) 0.0 Baso # (Auto) 0.0 Abs Immat Gran (auto) 0.02 Absolute Neuts (auto) 3.1 Absolute Nucleated RBC 0.000 Nucleated RBC % (auto) 0.0 Sodium 133 L Potassium 3.5 Chloride 97 Carbon Dioxide 25 Anion Gap 15 BUN 13 Creatinine 0.79 Estim Creat Clear Calc 98.2 Estimated GFR > 60 Random Glucose 124 H Calcium 8.8 Total Bilirubin 1.9 H AST 96 H ALT 86 H Alkaline Phosphatase 112 Total Protein 6.6 Albumin 4.2 Imaging MRI - head: Radiologist's impression: ITS Impressions Abdomen Ultrasound 05/09/25 07:46 IMPRESSION: Hepatic steatosis. The pancreas is not visualized. Electronically signed by: Laci Hou MD 05/09/2025 08:05 AM EDT RP Brain MRI 05/09/25 12:00 IMPRESSION: No acute intracranial abnormality. Electronically signed by: Laci Hou MD 05/09/2025 12:[address] scan - head: Radiologist's impression: ITS Impressions Abdomen Ultrasound 05/09/25 07:46 IMPRESSION: Hepatic steatosis. The pancreas is not visualized. Electronically signed by: Laci Hou MD 05/09/2025 08:05 AM EDT RP Brain MRI 05/09/25 12:00 IMPRESSION: No acute intracranial abnormality. Electronically signed by: Laci Hou MD 05/09/2025 12:50 PM EDT RP Discharge Plan Discharge Anticipated Discharge Date/Time: 05/10/25 12:22 Patient Disposition: Home, Self-Care Discharge Diagnosis: Alcohol use disorder Referrals: Heather Cisneros MD [Primary Care Provider, Internal Medicine] - 1 Week Discharge Medications: New thiamine HCl (vitamin B1) 100 mg tablet 100 mg PO DAILY Qty: 30 0RF Continued atorvastatin 20 mg tablet 20 mg PO DAILY amlodipine 5 mg tablet 5 mg PO DAILY metoprolol succinate 25 mg tablet extended release 24 hr 25 mg PO DAILY Eliquis 5 mg tablet 5 mg PO BID Discharge Orders: Discharge Order (Routine); Ordered 05/10/25 Ordered By: Connie Lucero Diet: Low salt diet Activity on Discharge: As tolerated Stand Alone Forms: Patient Portal Discharge page Print Language: Chadian Care Plan Goals: Follow-up with PCP within 1 week -repeat liver function panel, BMP and CBC Health Concerns: Alcohol use disorder Persistent atrial fibrillation on anticoagulation Thrombocytopenia Plan of Treatment: Alcohol abstinence Assessment: As above
--- NOTE | 2025-05-10 12:51 | HO.ADDICT_ITS ---
History of Present Illness Date of Service: 05/10/2025 Chief Complaint: Fall Reason for Consult: AUD Sources of Information: patient interviewed and chart reviewed HPI Narrative: Patient is a 69 year old male who presented to [facility] ED following a fall that resulted in laceration above the eye. Admitted with hyponatremia and concern for alcohol withdrawal. Patient seen in room 485. He is awake, alert, pleasant and engaged in interview. He reports long history of alcohol use, impacting various areas of his life, including his relationship with his daughter. He somewhat minimizes alcohol use, stating he only does so socially, although it seems he is drinking daily. Substance use history and treatment obtained by anesthesiology teacher and reviewed with patient. He states that lack of structure and impaired physical health have increased amount of alcohol. He states he used to be very active --both working and playing sports. Discussed how ongoing alcohol impacts overall health, including balance/mobility, prolonged healing of injuries, etc. He denies any history of RENATE. Labs reviewed CIWA scores 0,1 He denies any withdrawal sx and overall appears quite comfortable, eating breakfast, no tremor noted. Review of Systems Constitutional: Reports as per HPI (soreness of the face ) Diagnostics Vital Signs (24Hr): Vital Signs - 24 hr 05/09/25 15:07 05/09/25 19:49 05/09/25 20:11 Temperature 97.7 F 98.5 F Pulse Rate 69 95 Respiratory Rate 18 16 Blood Pressure 121/91 H 136/86 Pulse Oximetry 93 96 Oxygen Delivery Method Room Air Room Air 05/10/25 00:00 05/10/25 03:42 05/10/25 07:18 Temperature 98.5 F 98.7 F 97.3 F Pulse Rate 85 62 70 Respiratory Rate 16 16 18 Blood Pressure 141/80 H 124/75 152/109 H Pulse Oximetry 95 96 97 Oxygen Delivery Method Room Air Room Air Room Air 05/10/25 11:41 Temperature 97.7 F Pulse Rate 98 Respiratory Rate 18 Blood Pressure 112/79 Pulse Oximetry 99 Oxygen Delivery Method Room Air BMI result Body Mass Index 25.7 Labs 05/10/25 06:11 05/10/25 06:11 Labs: Laboratory Results - last 48 hr 05/09/25 05/09/25 05/09/25 00:29 06:32 08:24 WBC 6.9 RBC 3.96 L Hgb 13.6 L Hct 37.0 L MCV 93.4 MCH 34.3 H MCHC 36.8 H RDW 11.9 Plt Count 108 L MPV 9.7 Immature Gran % (Auto) 0.4 Neut % (Auto) 52.1 Lymph % (Auto) 37.0 [place] % (Auto) 8.9 Eos % (Auto) 1.5 Baso % (Auto) 0.1 Lymph # (Auto) 2.5 [place] # (Auto) 0.6 Eos # (Auto) 0.1 Baso # (Auto) 0.0 Abs Immat Gran (auto) 0.03 Absolute Neuts (auto) 3.6 Absolute Nucleated RBC 0.000 Nucleated RBC % (auto) 0.0 Smear Tech's Comments VERIFIED PT 13.6 H INR 1.2 H Sodium 125 L 125 L Potassium 3.4 3.7 Chloride 89 L 90 L Carbon Dioxide 24 24 Anion Gap 15 15 BUN 16 Creatinine 1.08 Estim Creat Clear Calc 71.8 Estimated GFR > 60 Random Glucose 115 Calcium 8.8 Iron 65 TIBC 252 % Saturation 26 Unsat Iron Binding 187 Total Bilirubin 1.3 H AST 115 H ALT 105 H Alkaline Phosphatase 85 Total Protein 6.7 Albumin 4.3 Vitamin B12 568 Folate 7.5 Urine Osmolality Ur Random Sodium Ur Random Potassium Ur Random Chloride Ethyl Alcohol 373 H* Hepatitis A IgM Ab Nonreactive Hep Bs Antigen Negative Hep Bs Antibody NONREACTIVE Hep B Core Total Ab Nonreactive Hepatitis C Ab (EIA) Nonreactive 05/09/25 05/09/25 05/10/25 10:38 10:38 06:11 WBC 5.0 RBC 4.06 L Hgb 14.1 Hct 38.1 L MCV 93.8 MCH 34.7 H MCHC 37.0 H RDW 12.1 Plt Count 94 L MPV 10.1 Immature Gran % (Auto) 0.4 Neut % (Auto) 60.8 Lymph % (Auto) 24.8 [place] % (Auto) 12.8 H Eos % (Auto) 0.8 Baso % (Auto) 0.4 Lymph # (Auto) 1.2 [place] # (Auto) 0.6 Eos # (Auto) 0.0 Baso # (Auto) 0.0 Abs Immat Gran (auto) 0.02 Absolute Neuts (auto) 3.1 Absolute Nucleated RBC 0.000 Nucleated RBC % (auto) 0.0 Smear Tech's Comments PT INR Sodium 133 L Potassium 3.5 Chloride 97 Carbon Dioxide 25 Anion Gap 15 BUN 13 Creatinine 0.79 Estim Creat Clear Calc 98.2 Estimated GFR > 60 Random Glucose 124 H Calcium 8.8 Iron TIBC % Saturation Unsat Iron Binding Total Bilirubin 1.9 H AST 96 H ALT 86 H Alkaline Phosphatase 112 Total Protein 6.6 Albumin 4.2 Vitamin B12 Folate Urine Osmolality 277 L Ur Random Sodium Cancelled < 20.0 Ur Random Potassium 13.4 Ur Random Chloride < 20.0 Ethyl Alcohol Hepatitis A IgM Ab Hep Bs Antigen Hep Bs Antibody Hep B Core Total Ab Hepatitis C Ab (EIA) Imaging Radiology Impressions: ITS Impressions Abdomen Ultrasound 05/09/25 07:46 IMPRESSION: Hepatic steatosis. The pancreas is not visualized. Electronically signed by: Laci Hou MD 05/09/2025 08:05 AM EDT RP Brain MRI 05/09/25 12:00 IMPRESSION: No acute intracranial abnormality. Electronically signed by: Laci Hou MD 05/09/2025 12:50 PM EDT RP Mental Status Exam Mental Status Exam Patient Appearance: Well Grooomed and Appropriate Level of Consciousness: Awake and Appropriate Patient Behavior: Appropriate and Talkative Affect Description: Calm and Appropriate Speech Pattern: Clear Hallucinations: None Thought Process: Intact Thought Content: positive for Intact Judgement: Good Medications Medications Current Medications Albuterol/Ipratropium (Albuterol/Iprat 2.5/0.5mg 3 Ml Ampul.Neb) 3 ml INHALE Q4H PRN PRN Reason: Shortness of Breath/Wheezing Apixaban (Apixaban 5 Mg Tablet) 5 mg PO BID [facility] Last Admin: 05/10/25 08:17 Dose: 5 mg Calcium Carbonate (Calcium Carbonate 750 Mg Tab.Chew) 750 mg PO Q4H PRN PRN Reason: Heartburn Folic Acid (Folic Acid 1 Mg Tablet) 1 mg PO DAILY [facility] Stop: 05/12/25 08:59 Last Admin: 05/10/25 08:16 Dose: 1 mg Hydromorphone HCl (Hydromorphone Hcl 0.5 Mg/0.5 Ml Syringe) 0.5 mg IVPUSH Q4H PRN; Protocol PRN Reason: Pain, Severe (Pain Scale 7-10) Lorazepam (Lorazepam 1 Mg Tablet) 1 mg PO Q4H PRN PRN Reason: Breakthrough alcohol withdrawa Stop: 05/13/25 06:39 Last Admin: 05/10/25 08:19 Dose: 1 mg Magnesium Hydroxide (Milk Of Magnesia 30 Ml Oral.Susp) 30 ml PO DAILY PRN PRN Reason: Constipation Melatonin (Melatonin 3 Mg Tablet) 6 mg PO BEDTIME PRN PRN Reason: Insomnia Multivitamins/Vitamin C (Multivitamin Tablet) 1 tab PO DAILY [facility] Stop: 05/12/25 08:59 Last Admin: 05/10/25 08:16 Dose: 1 tab Omeprazole (Omeprazole 20 Mg Capsule.Dr) 20 mg PO DAILY@629 [facility] Last Admin: 05/10/25 05:11 Dose: 20 mg Oxycodone HCl (Oxycodone Hcl Immed Release 5 Mg Tablet) 5 mg PO Q6H PRN PRN Reason: Pain, Moderate(Pain Scale 4-6) Last Admin: 05/10/25 08:17 Dose: 5 mg Pharmacy Consult (Consult Rx Etoh Phenob Im/Po) 1 each MISCELLANE ONCE PRN; Protocol PRN Reason: Consult order Phenobarbital (Phenobarbital 30 Mg Tablet) 60 mg PO BID [facility]; Protocol Stop: 05/11/25 09:01 Last Admin: 05/10/25 08:17 Dose: 60 mg Phenobarbital (Phenobarbital 30 Mg Tablet) 30 mg PO BID [facility]; Protocol Stop: 05/13/25 09:01 Phenobarbital (Phenobarbital 30 Mg Tablet) 30 mg PO DAILY [facility]; Protocol Stop: 05/15/25 09:01 Sodium Chloride (0.9 % Sodium Chloride Flush 3 Ml Syringe) 3 ml IVFLUSH QSHIFT [facility] Last Admin: 05/10/25 08:17 Dose: Not Given Thiamine HCl (Thiamine Hcl 100 Mg Tablet) 100 mg PO DAILY [facility] Stop: 05/12/25 08:59 Last Admin: 05/10/25 08:16 Dose: 100 mg Allergies Allergies Allergy/AdvReac Type Severity Reaction Status Date / Time No Known Allergies (No Known Allergy Verified 05/08/25 23:55 Allergies*) Assessment & Plan Assessment & Plan (1) Alcohol use disorder: Status: Acute Code(s): F10.90 - Alcohol use, unspecified, uncomplicated Assessment and Plan: * agreeable to Naltrexone trial. Discussed medication, dosing, goals of treatment * Discussed risk reduction strategies including eating, taking vitamins/supplements, and alternate activities to drinking * anesthesiology teacher to follow up with additional medication information and to schedule appt with [facility] Total time managing care of this patient today __40__ minutes. [facility] Past Medical History Medical History Mild intermittent asthma HLD (hyperlipidemia) Hypertension Persistent atrial fibrillation Alcohol use disorder Social History Social History Household Members: None Housing: Apartment Do you presently have visiting nurse or other home services: No Alcohol intake: current Alcohol intake frequency: 3 or more drinks per day Alcohol type: hard liquor Patient Tobacco Use Status: Former Tobacco user Tobacco use type: Cigarette e-Cigarette/Vaping Use: Never Used service: No
--- NOTE | 2025-05-10 13:28 | MHC.CM.PN ---
Pt has been medically cleared to [place], he will go home via private transport, plan is self care.
--- NOTE | 2025-05-10 13:29 | W.MHC.F2F ---
Service Date Service Date: 05/10/25 Encounter Date of encounter: 05/10/25 Reasons for Services Signs and symptoms assessed: Impaired gait pattern and joint ROM, muscle weakness, impaired standing balance Reason for physical therapy: home safety and mobility, therapeutic exercises, restore joint function, gait/transfer training, assess need for DME, ADL training, energy conservation and other Homebound: Leaving the home is medically contraindicated at this time without the asist of a device and/or another person due th the listed conditions above and below. Reason homebound: unsteady gait / fall risk, leg weakness, poor balance / fall risk and weakness related to hospital stay Certification: Based on the above findings, I certify that this patient is confined to the home and needs intermittent custodial care, physical therapy and/or speech therapy, or continues to need occupational therapy. The patient is under my care, and I have initiated the establishment of the plan of care. The patient will be followed by a physician who will periodically review the plan of care. Time Spent With Patient Time: Total time managing care of this patient today ____ minutes.
== END 2025-05-10 14:30 | disposition home or self-care (01) | DRG 641 ==
LOC: HO.ED 05-09 05:36 → HO.EDOVER 05-09 06:08 → HO.IMC 05-09 07:28
PROVIDERS: Nurse Practitioner Family; Physician Assistant; Admitting Provider Hospitalist; Emergency Provider Emergency Medicine; PCP Internal Medicine; Visit Provider Student in an Organized Health Care Education/Training Program
DX: E87.1 Hypo-osmolality and hyponatremia (principal); I48.19 Other persistent atrial fibrillation; F10.929 Alcohol use, unspecified with intoxication, unspecified; Y90.8 Blood alcohol level of 240 mg/100 ml or more; S01.112A Laceration without foreign body of left eyelid and periocular area, initial encounter; W19.XXXA Unspecified fall, initial encounter; J45.20 Mild intermittent asthma, uncomplicated; K76.0 Fatty (change of) liver, not elsewhere classified; E86.1 Hypovolemia; I65.02 Occlusion and stenosis of left vertebral artery; R00.1 Bradycardia, unspecified; D64.9 Anemia, unspecified; D69.59 Other secondary thrombocytopenia; Z87.891 Personal history of nicotine dependence; Z79.01 Long term (current) use of anticoagulants; Z79.899 Other long term (current) drug therapy
CPT/HCPCS: 36415; 70450; 70496; 70498; 70551; 72125; 76705; 80051; 80053; 80307; 82436; 82607; 82746; 83540; 83935; 84133; 84300; 85025; 85610; 86704; 86706; 86709; 86803; 87340; 93005; 97161; 97162; 99285; J2560; J7120; Q9967; S9485

== ENCOUNTER → 2025-05-08 | Outpatient (BNV) | payer MEDICARE, SELFPAY | PROVIDERS: Admitting Provider Hospitalist; Emergency Provider Emergency Medicine; Visit Provider Internal Medicine Cardiovascular Disease | DX: I48.91 Unspecified atrial fibrillation (principal) | CPT/HCPCS: 93010 ==

== ENCOUNTER → 2025-05-09 05:21 | Outpatient (BNV) | payer OTHER, SELFPAY | PROVIDERS: Admitting Provider Hospitalist; Emergency Provider Emergency Medicine; PCP Internal Medicine; Visit Provider Nurse Practitioner Psychiatric/Mental Health | DX: F10.90 Alcohol use, unspecified, uncomplicated (principal) | CPT/HCPCS: 99222 ==

== ENCOUNTER → 2025-05-09 05:21 | Outpatient (BNV) | payer MEDICARE, MEDICAID, SELFPAY | PROVIDERS: Admitting Provider Hospitalist; Emergency Provider Emergency Medicine; PCP Internal Medicine; Visit Provider Nurse Practitioner Family | DX: F10.90 Alcohol use, unspecified, uncomplicated (principal); E87.1 Hypo-osmolality and hyponatremia | CPT/HCPCS: 99221 ==

== ENCOUNTER → 2025-05-09 05:21 | Outpatient (BNV) | payer MEDICARE, MEDICAID, SELFPAY | PROVIDERS: Admitting Provider Hospitalist; Emergency Provider Emergency Medicine; PCP Internal Medicine; Visit Provider Physician Assistant | DX: R29.6 Repeated falls (principal); R26.81 Unsteadiness on feet; S01.112A Laceration without foreign body of left eyelid and periocular area, initial encounter; F10.929 Alcohol use, unspecified with intoxication, unspecified; E87.1 Hypo-osmolality and hyponatremia; F10.90 Alcohol use, unspecified, uncomplicated; R74.01 Elevation of levels of liver transaminase levels; R00.1 Bradycardia, unspecified; D64.9 Anemia, unspecified; D69.6 Thrombocytopenia, unspecified | CPT/HCPCS: 99223 ==

== ENCOUNTER → 2025-05-09 23:12 | Outpatient (BNV) | payer MEDICARE, MEDICAID, SELFPAY | PROVIDERS: Emergency Provider Emergency Medicine; Visit Provider Radiology Diagnostic Radiology | DX: R42 Dizziness and giddiness (principal); R29.6 Repeated falls; R74.01 Elevation of levels of liver transaminase levels | CPT/HCPCS: 70450; 72125 ==

== ENCOUNTER 2025-05-19 13:48 | Emergency (ER) | payer MEDICARE, OTHER, SELFPAY ==
--- NOTE | 2025-05-19 | ECG_ITS ---
Test Reason : WEAKNESS Blood Pressure : */* mmHG Vent. Rate : 60 BPM Atrial Rate : * BPM P-R Int : * ms QRS Dur : 84 ms QT Int : 442 ms P-R-T Axes : * 11 29 degrees QTcB Int : 442 ms Atrial fibrillation Abnormal ECG When compared with ECG of 09-May-2025 00:37, No significant change was found Referred By: Alysa Valencia Electronically Signed By: SHARON CANTOR
--- NOTE | ~2025-05-19 | CT_ITS ---
EXAMINATION: CT HEAD WITHOUT CONTRAST CLINICAL INFORMATION: weak, dizzy, etoh COMPARISON: May 09, 2025. TECHNIQUE: Contiguous axial imaging was performed from the skull base to vertex without intravenous administration of contrast. This CT examination was performed using dose optimization techniques as appropriate, variously including the following: *Automated exposure control *Adjustment of mA and/or kV according to patient size (this includes techniques or standardized protocols for targeted exams where dose is matched to indication/reason for exam; i.e. extremities or head) *Use of iterative reconstruction technique DLP: 748 mGy-cm FINDINGS: No acute intracranial hemorrhage, mass effect, midline shift, hydrocephalus or herniation. Bilateral multifocal patchy and confluent deep periventricular white matter hypodensities involving centrum semiovale and yuan radiata. Multiple old lacunar infarcts, basal ganglia and extracapsular Kim-white matter differentiation is normal. Prominence of the extra-axial CSF spaces along the frontal convexities. Calcified plaques in the V4 segment left vertebral artery and cavernous supracavernous segments both ICAs. Normal position of the cerebellar tonsils. Old traumatic deformities, nasal bones. Tympanic cavities and mastoid cells are aerated. No air-fluid levels in the paranasal sinuses. CT/CT head/brain wo IV con IMPRESSION: No acute intracranial hemorrhage. White matter disease likely related to small vessel occlusive disease. Global cerebral atrophy.. Electronically signed by: Vlad White MD 05/19/2025 03:51 PM EDT
--- NOTE | 2025-05-19 13:50 | ED.GENADULT ---
HPI - General Adult General Chief complaint: Weakness Stated complaint: ETOH Time Seen by Provider: 05/19/25 13:50 Source: patient, EMS, RN notes reviewed and old records reviewed Mode of arrival: EMS Limitations: no limitations History of Present Illness ED Provider: Erik HPI narrative: Patient is a 69 year-old male with history of hypertension, hyperlipidemia, atrial fibrillation on Eliquis, alcohol use disorder presenting to the ED with complaint of dizziness and frequent falls for at least several months, unable to state specifically how long. Reports difficulty with ambulation due to feeling unsteady. Admits to regular alcohol use. Denies current headache, vision changes, chest pain, palpitations or dyspnea. Seen in this ED on 05/09 and had sutures placed to left eyebrow. States that he thought these were dissolving sutures, did not realize he was supposed to have these removed. Denies any abdominal pain, nausea, vomiting diarrhea. Admits to withdrawal seizures in the past. MD complaint: dizzy, falls Onset (ago): unknown Related Data Home Medications ?Medication ?Instructions ?Recorded ?Confirmed amlodipine 5 mg tablet 5 mg PO DAILY 05/09/25 05/09/25 apixaban 5 mg tablet (Eliquis) 5 mg PO BID 05/09/25 05/09/25 atorvastatin 20 mg tablet 20 mg PO DAILY 05/09/25 05/09/25 metoprolol succinate 25 mg 25 mg PO DAILY 05/09/25 05/09/25 tablet,extended release 24 hr Previous Rx's ?Medication ?Instructions ?Recorded naltrexone 50 mg tablet 50 mg PO DAILY #30 tabs 05/10/25 thiamine HCl (vitamin B1) 100 mg 100 mg PO DAILY #30 tabs 05/10/25 tablet Allergies Allergy/AdvReac Type Severity Reaction Status Date / Time No Known Allergies (No Known Allergy Verified 05/19/25 14:08 Allergies*) Review of Systems Review of Systems: As per HPI Yes all other systems are reviewed and are negative Constitutional: Constitutional: Reports as per HPI [facility] Past Medical History Medical History (Updated 05/19/25 @ 18:49 by Alysa Valencia NP) Bradycardia Unsteady gait Alcohol intoxication Unwitnessed fall Laceration of left eyebrow without complication Mild intermittent asthma HLD (hyperlipidemia) Hypertension Persistent atrial fibrillation Alcohol use disorder Social History Social History Household Members: None Housing: Apartment Do you presently have visiting nurse or other home services: No Alcohol intake: current Alcohol intake frequency: 3 or more drinks per day Alcohol type: beer Patient Tobacco Use Status: Former Tobacco user Tobacco use type: Cigarette Smoked in Last 30 Days: No e-Cigarette/Vaping Use: Never Used Substance Use Type: Marijuana Substance Use Frequency: Chronic Longstanding Advance Directives: Yes Advance Directives on File: Yes Advance Directives Date on File: 05/11/25 service: No Physical Exam ED Vital Signs: Vital Signs - 24 hr 05/19/25 13:59 05/19/25 16:46 05/19/25 18:18 Temperature 98.1 F 98.0 F 97.4 F Pulse Rate 61 101 H 59 Respiratory Rate 16 16 16 Blood Pressure 118/75 136/67 139/96 H Pulse Oximetry 98 93 99 Oxygen Delivery Method Room Air Room Air Room Air 05/19/25 19:29 05/19/25 22:23 Temperature 97.4 F 98.8 F Pulse Rate 63 66 Respiratory Rate 18 Blood Pressure 120/56 L 125/69 Pulse Oximetry 96 97 Oxygen Delivery Method Room Air Room Air BMI result Body Mass Index 27.3 Vital signs have been reviewed and appear to be correct. Blood pressure normal. Heart rate normal. Respiratory rate normal. Temperature normal. Oxygen saturation normal. Const General: cooperative, healthy appearing and no acute distress Orientation/consciousness: oriented to person, oriented to place, oriented to time and patient oriented x3 Limitations: no limitations HENMT Head: Yes normocephalic and Yes atraumatic Head images:  1. healed wound with sutures in place Ears: external ears normal General nose exam: Normal external nose present Face and sinus: Yes face symmetric Mouth: oropharynx normal and moist mucous membranes Throat: Yes uvula midline Eyes Pupils: Equal, round and reactive pupils present Neck Neck: Yes normal visual inspection and Yes supple Resp Effort & Inspection: normal respiratory effort and able to speak in complete sentences Auscultation: clear to auscultation bilaterally Cardio Rate: regular rate Rhythm: regular rhythm Heart sounds: S1 normal heart sound present and S2 normal heart sound present GI Palpation (GI): Soft to palpation and nontender Auscultation: normoactive bowel sounds General: Yes no CVA tenderness Back/Spine/Pelvis Back: no CVA tenderness Skin General skin exam: elasticity normal and turgor normal Neuro General: oriented to person, oriented to place, oriented to time, patient oriented x3, moves all extremities, no focal motor deficits and CN's II-XI intact bilaterally Cranial nerves: Yes Equal, round and reactive pupils present Cognition (Neuro): normal cognition Extrem General: Yes full ROM, Yes no pedal edema and Yes no calf tenderness Psych Mental Status: mental status grossly normal Affect: normal affect Thought process: Normal thought process present Course Course Course Narrative: 10:26 PM 05/19/2025 (Nicole GARCIA): The patient was signed out to this provider at shift change, in summary the patient is a 69-year-old male presenting to the ED for evaluation of alcohol intoxication. Patient was found to have ethanol level of 320, as well as hyponatremia of 126. The remainder of the patient's laboratory workup was reassuring, head CT was negative. The patient's case was discussed with the hospitalist, who upon chart review noted the patient was recently admitted on 05/09 for hyponatremia which improved regularly with IV fluid hydration. Plan was made for IV fluid hydration and repeat BMP. The patient was signed out this provider's pending completion of 2 L IV fluid hydration with plan for repeat BMP and discharge home if hyponatremia has improved. At this time the patient's fluid hydration has completed and we will repeat BMP. Patient remains hemodynamically stable and afebrile. 11:11 PM 05/19/2025 (Nicole GARCIA): Patient's repeat BMP shows sodium of 133. Patient will be walked to ensure gait stability and discharged to follow up with PCP. 11:17 PM 05/19/2025 (Nicole GARCIA): Patient ambulated with a steady gait, will be discharged to follow up with PCP. Medications Administered Discontinued Medications Generic Name Dose Route Start Last Admin Trade Name Freq PRN Reason Stop Dose Admin Sodium Chloride 1,000 mls @ 999 mls/hr 05/19/25 17:15 05/19/25 20:57 Ns IV 05/19/25 18:15 Infused .Q1H1M JESSICA Infusion Sodium Chloride 1,000 mls @ 999 mls/hr 05/19/25 17:15 05/19/25 20:57 Ns IV 05/19/25 18:15 Infused .Q1H1M JESSICA Infusion Medical Decision Making Medical Decision Making MDM Narrative: Patient is a 69 year-old male with history of hypertension, hyperlipidemia, atrial fibrillation on Eliquis, alcohol use disorder presenting to the ED with complaint of dizziness and frequent falls for at least several months, unable to state specifically how long. On exam patient is awake, A+Ox3, VS WNL, afebrile, normal neurological exam without focal deficits, physical exam findings as above. Given reported symptoms and physical exam findings, initial differential includes but is not limited to drug or alcohol intoxication, ICH, skull fracture, electrolyte abnormality. 3 sutures removed from left eyebrow, unable to locate 4th. Labs notable for hyponatremia, LFTs similar to prior, negative troponin, ethanol of 320. CT head notable for no evidence of ICH or skull fracture. My interpretation is in agreement with the radiologist's interpretation. States he has been unable to follow up with addiction medicine regarding his alcohol use because he does not drive. Case discussed with Gary Garibay hospitalist JOSE, who does not feel patient requires admission at this time. She notes that on his recent admission his sodium levels improved with IV fluids and that his balance issues are likely due to his chronic alcohol use. She recommends IV saline and repeat BMP. I am comfortable with this plan. Patient signed out to JOSE Segura pending repeat BMP and clinical sobriety. Differential Diagnosis Differential Diagnoses: The differential diagnosis associated with the presentation includes as per [facility] Admission/Observation Consideration of admission/observation: Escalation of care including admission/observation considered Consult Healthcare Provider Management of the patient was discussed with: Hospitalist Lab Data [facility] Lab Attestation statement: I reviewed the patient's lab results. As per [facility] 05/19/25 14:22 05/19/25 22:35 Labs: Lab Results 05/19/25 05/19/25 Range/Units 14:22 22:35 WBC 7.6 (4.8-10.8) X10*3/uL RBC 4.04 L (4.60-5.80) X10*6/uL Hgb 13.9 L (14.0-18.0) g/dl Hct 38.2 L (42.0-52.0) % MCV 94.6 (80.0-98.0) fL MCH 34.4 H (27.0-33.0) pg MCHC 36.4 H (31.0-36.0) g/dl RDW 11.9 (11.0-16.0) % Plt Count 161 D (160-400) X10*3/uL MPV 9.0 L (9.4-12.4) fL Immature Gran % (Auto) 0.4 (0.0-0.4) % Neut % (Auto) 59.2 (45-73) % Lymph % (Auto) 31.7 (20-40) % [place] % (Auto) 7.7 (2-11) % Eos % (Auto) 0.7 (0-4) % Baso % (Auto) 0.3 (0-2) % Lymph # (Auto) 2.4 (1.2-4.9) X10*3/uL [place] # (Auto) 0.6 (0.1-1.2) X10*3/uL Eos # (Auto) 0.1 (0.0-0.4) X10*3/uL Baso # (Auto) 0.0 (0.0-0.2) X10*3/uL Abs Immat Gran (auto) 0.03 (0.00-0.03) X10*3/uL Absolute Neuts (auto) 4.5 (2.0-8.3) x10*3/uL Absolute Nucleated RBC 0.000 (0.0-0.012) X10*3/uL Nucleated RBC % (auto) 0.0 (0.0-0.2) /100WBC Sodium 126 L 133 L (135-145) mmol/L Potassium 3.9 3.6 (3.3-5.1) mmol/L Chloride 92 L 97 (96-108) mmol/L Carbon Dioxide 22 25 (22-29) mmol/L Anion Gap 16 15 (12-20) BUN 18 H 16 (9-16) mg/dL Creatinine 0.96 0.86 (0.5-1.4) mg/dL Estim Creat Clear Calc 76.0 84.8 Estimated GFR > 60 > 60 Random Glucose 97 100 (60-115) mg/dL Calcium 8.7 8.8 (8.4-10.2) mg/dL Total Bilirubin 1.2 H (0.0-1.0) mg/dL AST 97 H (5-37) U/L ALT 74 H (0-40) U/L Alkaline Phosphatase 90 (39-117) U/L Troponin I High Sens 2.8 (<3.5-35.0) ng/L Total Protein 6.9 (6.5-8.0) g/dL Albumin 4.4 (3.5-5.0) g/dL Ethyl Alcohol 320 H* mg/dL Independent Interpretation I performed an independent interpretation of an: CT Scan Interpretation: CT head without evidence of ICH or skull fracture Radiology Impression Discussion of test interpretation with radiology: I have reviewed the radiologist's reading. Radiologist Impression: CT/CT head/brain wo IV con IMPRESSION: No acute intracranial hemorrhage. White matter disease likely related to small vessel occlusive disease. Global cerebral atrophy.. External Record Review External record reviewed: Inpatient record, Office record and Outpatient record Discharge Plan Discharge Clinical Impression: Alcohol intoxication, Hyponatremia Patient Disposition: Home, Self-Care Instructions: Hyponatremia (ED), Alcohol Intoxication (ED) Additional Instructions: Thank you for choosing [facility]'s Emergency Department for your care today. Your sodium level today was low, we provided you IV fluid hydration which corrected this abnormal finding. At this time there is no indication for admission to the hospital or continued ED observation, and it is safe to discharge you home. Please do not drink alcohol in excess as this is not generally good for your health and can put you at an increased risk for otherwise avoidable injury and health ailments. Failure to decrease your alcohol consumption will put you at increased risk for liver disease and a decreased quality of life. Please utilize all available personal and community resources to reduce or eliminate your alcohol consumption. Please follow up with your primary care physician for re-evaluation, additional management of your symptoms, and continued preventative care. If you do not have a primary care physician, please call the [facility] at [phone] to establish a new primary care physician. While waiting to establish your new primary care physician, you can call our Walk-in Care Clinic at [phone] for non-emergency needs. Please return to the emergency department if you develop a severe or sudden change in your symptoms, a fever over 100.4 that does not improve with Tylenol or Ibuprofen, recurrent vomiting, or any other new or worsening symptoms or concerns. Prescriptions: No Action atorvastatin 20 mg tablet 20 mg PO DAILY amlodipine 5 mg tablet 5 mg PO DAILY metoprolol succinate 25 mg tablet extended release 24 hr 25 mg PO DAILY Eliquis 5 mg tablet 5 mg PO BID thiamine HCl (vitamin B1) 100 mg tablet 100 mg PO DAILY Qty: 30 0RF naltrexone 50 mg tablet 50 mg PO DAILY Qty: 30 0RF Rx Instructions: take 1/2 tab daily for 3 days, then increase to one tab daily Print Language: Telugu
[2025-05-19 13:59] VITALS: BP 118/75; BP 150/70; PULSE 61; PULSE 68; RESP 16; TEMP 36.7; O2SAT 98; BMI 27.3
--- OUTSIDE RECORDS SUMMARY | 2025-05-19 14:20 | XMS_ITS ---
Author Name [facility] Organization Unknown Care Team Organization Name Specialty Phone Email Start Date End Da te [facility] Lacie Chavez Primary Care 09/23/2023 05/30/2024 [facility] Lacie Chavez Primary Care 12/17/2022 05/30/2024 [facility] Termed, PROVIDER Primary Care 08/19/202205/12
--- OUTSIDE RECORDS SUMMARY | 2025-05-19 14:20 | XMS_ITS | Clinical Summary ---
Author Organization [facility] Address [address] [place], [place] [address] Phone Care Team Providers Care Field Auto Appraiser Name Role Phone Heather Lai MD Primary [...] care. Obstructive sleep apnea 03/15/2021 Overview (02/16/2025): [facility] Home Sleep Apnea Test: Date 03/04/2021; [...] 11:30 AM EDT Office Visit Adult Medicine [address] [phone] Heather Coyne MD Alcohol use disorder (Primary Dx); Dizziness; Chronic alcoholic hepatitis (CMS/HCC V28); Paroxysmal atrial fibrillation (CMS/HCC V24, CMS/HCC V28) 04/20/2025 5:32 PM EDT - 04/20/2025 9:16 PM EDT Emergency [facility] Emergency [address] [place] [id number] Fara Stewart, DO Alcohol use (Primary Dx) Discharge Disposition: Home or Self Care 02/16/2025 8:40 AM EDT Office Visit [facility] [address] [place] [address] Tamera Benavides NP Atrial fibrillation, unspecified type ([facility]/HCC V24, [facility] V28) (Primary Dx); Coronary artery disease involving [place] coronary artery of [place] heart with unstable angina pectoris (CMS/HCC V24, CMS/HCC V28); Diastolic dysfunction; Mixed hyperlipidemia; HTN (hypertension), benign; Aneurysm of ascending aorta without rupture ([facility] V24) from Last 3 Months Immunizations Name [...] Comments Elevated PSA 05/13/2022 DX:Elevated PSA; COMMENT: [facility], TRUS is recommended as of 04/17/2022 Chronic ischemic heart disease D X:Chronic ischemic heart disease Rectal bleed DX:Rectal bleed Straining with stools DX:Straini ng with stools Hemorrhoids DX:Hemorrhoids Elevated LFTs DX:Elevated LFTs Fatty liver DX:Fatty liver Alcohol use with alcohol-ind uced disorder ([facility] V24) DX:Alcohol use with alcohol- induced disorder [...] 04/20/2025 6:03 PM EDT Plan of Treatment Health Maintenance Due Date Last Done Comments [...] LAB CHEMISTRY METHOD 04/20/2025 9:29 PM EDT [facility] Blood Venous blood specimen / Unknown Venipuncture / Unknown 04/20/2025 8:33 PM EDT 04/20/2025 8:57 PM EDT us Fara Stewart DO LAB BLOOD ORDERABLES [place] l Result [facility] [address] [place] [address], [place] [phone] * (ABNORMAL) Comprehensive metabolic panel (04/20/2025 8:33 PM EDT) Only the most recent of2 resultswithin the time period is included. Sodium 139 133 - 145 mmol/L LAB CHEMISTRY METHOD 04/20/2025 9:31 PM [facility] Potassium 3.5 3.5 - 5.5 mmol/L LAB CHEMISTRY METHOD 04/20/2025 9:31 PM [facility] Chloride 105 96 - 110 mmol/L LAB CHEMISTRY METHOD 04/20/2025 9:31 PM [facility] CO2 26 21 - 32 mmol/L LAB CHEMISTRY METHOD 04/20/2025 9:31 PM [facility] Anion Gap 8 3 - 11 LAB CHEMISTRY METHOD 04/20/2025 9:31 PM [facility] Glucose 132(H) 70 - 100 mg/dL LAB CHEMISTRY METHOD 04/20/2025 9:31 PM [facility] BUN 9 5 - 25 mg/dL LAB CHEMISTRY METHOD 04/20/2025 9:31 PM [facility] Creatinine 0.76 0.70 - 1.30 mg/dL LAB CHEMISTRY METHOD 04/20/2025 9:31 PM [facility] eGFR 98 >=60 mL/min/1. 73m2 LAB CHEMISTRY METHOD 04/20/2025 9:31 PM [facility] Comment:Calculation based on the Chronic Kidney Disease Epidemiology Collaboration (CKD-EPI) equation refit without adjustment for race. BUN/Creatinine Ratio 11.8 LAB CHEMISTRY METHOD 04/20/2025 9:31 PM [facility] Calcium 9.0 8.5 - 10.5 mg/dL LAB CHEMISTRY METHOD 04/20/2025 9:31 PM [facility] AST (SGOT) 71(H) 10 - 42 unit/L LAB CHEMISTRY METHOD 04/20/2025 9:31 PM [facility] ALT (SGPT) 63(H) 10 - 60 unit/L LAB CHEMISTRY METHOD 04/20/2025 9:31 PM EDT [facility] Alkaline Phosphatase 110 42 - 121 unit/L LAB CHEMISTRY METHOD 04/20/2025 9:31 PM EDT [facility] Total Protein 7.2 6.0 - 8.0 g/dL LAB CHEMISTRY METHOD 04/20/2025 9:31 PM EDT [facility] Albumin 4.0 3.2 - 5.0 g/dL LAB CHEMISTRY METHOD 04/20/2025 9:31 PM EDT [facility] Total Bilirubin 0.9 0.0 - 1.4 mg/dL LAB CHEMISTRY METHOD 04/20/2025 9:31 PM EDT [facility] Blood Venous blood specimen / Unknown Venipuncture / Unknown 04/20/2025 8:33 PM EDT 04/20/2025 8:57 PM EDT Fara Stewart DO LAB BLOOD ORDERABLES [place] l Result [facility] [address] [place] [address], [place] [phone] * (ABNORMAL) CBC auto differential (04/20/2025 6:40 PM EDT) Only the most recent of2 resultswithin the time period is included. WBC 5.7 4.8 - 10.8 K/mcL LAB HEMETOLOGY METHOD 04/20/2025 7:27 PM EDT [facility] RBC 4.40(L) 4.50 - 5.50 M/mcL LAB HEMETOLOGY METHOD 04/20/2025 7:27 PM EDT [facility] Hemoglobin 15.2 13.5 - 17.5 g/dL LAB HEMETOLOGY METHOD 04/20/2025 7:27 PM EDT [facility] Hematocrit 42.7 42.0 - 54.0 % LAB [facility] MCV 97.7 79.0 - 98.0 FL LAB HEMETOLOGY METHOD 04/20/2025 7:27 PM [facility] MCH 34.8(H) 27.0 - 32.0 pcg LAB HEMETOLOGY METHOD 04/20/2025 7:27 PM [facility] MCHC 35.6 32.0 - 37.0 g/dL LAB HEMETOLOGY METHOD 04/20/2025 7:27 PM [facility] RDW 11.8 11.0 - 15.0 % LAB HEMETOLOGY METHOD 04/20/2025 7:27 PM [facility] Platelets 141 130 - 400 K/mcL LAB HEMETOLOGY METHOD 04/20/2025 7:27 PM [facility] MPV 10.1 7.0 - 11.0 FL LAB HEMETOLOGY METHOD 04/20/2025 7:27 PM [facility] NRBC 0.0 <1.0 % LAB HEMETOLOGY METHOD 04/20/2025 7:27 PM [facility] NRBC Absolute 0.00 <0.10 K/mcL LAB HEMETOLOGY METHOD 04/20/2025 7:27 PM [facility] Neutrophils Relative 51.9 % LAB HEMETOLOGY METHOD 04/20/2025 7:27 PM [facility] Lymphocytes Relative 38.4 % LAB HEMETOLOGY METHOD 04/20/2025 7:27 PM [facility] Monocytes Relative 7.9 % LAB HEMETOLOGY METHOD 04/20/2025 7:27 PM [facility] Eosinophils Relative 0.9 % LAB HEMETOLOGY METHOD 04/20/2025 7:27 PM [facility] Basophils Relative 0.4 % LAB HEMETOLOGY METHOD 04/20/2025 7:27 PM EDT [facility] Immature Granulocytes Relative 0.5 % LAB HEMETOLOGY METHOD 04/20/2025 7:27 PM EDT [facility] Neutrophils Absolute 2.95 1.50 - 7.00 K/mcL LAB HEMETOLOGY METHOD 04/20/2025 7:27 PM EDT [facility] Lymphocytes Absolute 2.18 1.00 - 5.00 K/mcL LAB HEMETOLOGY METHOD 04/20/2025 7:27 PM EDT [facility] Monocytes Absolute 0.45 0.20 - 1.00 K/mcL LAB HEMETOLOGY METHOD 04/20/2025 7:27 PM EDT [facility] Eosinophils Absolute 0.05 0.00 - 0.50 K/mcL LAB HEMETOLOGY METHOD 04/20/2025 7:27 PM EDT [facility] Basophils Absolute 0.02 0.00 - 0.20 K/mcL LAB HEMETOLOGY METHOD 04/20/2025 7:27 PM EDT [facility] Immature Granulocytes Absolute 0.03 0.00 - 0.03 K/mcL LAB HEMETOLOGY METHOD 04/20/2025 7:27 PM EDT [facility] Blood Venous blood specimen / Unknown Venipuncture / Unknown 04/20/2025 6:40 PM EDT 04/20/2025 7:08 PM EDT us Fara Stewart DO LAB BLOOD ORDERABLES [place] l Result [facility] [address] [place] [address], * (ABNORMAL) Lipid panel with reflex to direct LDL (02/23/2025 11:29 AM EDT) [facility] Signature Cholesterol 256(H) 0 - 200 mg/dL LAB CHEMISTRY METHOD 02/23/2025 5:24 PM EDT [facility] Triglycerides 148 0 - 150 mg/dL LAB CHEMISTRY METHOD 02/23/2025 5:24 PM EDT [facility] HDL 103 >=40 mg/dL LAB CHEMISTRY METHOD 02/23/2025 5:24 PM EDT [facility] LDL Calculated 123(H) 0 - 100 mg/dL LAB CHEMISTRY METHOD 02/23/2025 5:24 PM EDT [facility] VLDL Cholesterol Marcelo 29.6 mg/dL LAB CHEMISTRY METHOD 02/23/2025 5:24 PM EDT [facility] Non HDL Chol. (LDL+VLDL) 153(H) <145 mg/dL LAB CHEMISTRY METHOD 02/23/2025 5:24 PM EDT [facility] Chol/HDL Ratio 2.5 0.0 - 4.4 LAB CHEMISTRY METHOD 02/23/2025 5:24 PM EDT [facility] Blood Venous blood specimen / Unknown Venipuncture / Unknown 02/23/2025 11:29 AM EDT 02/23/2025 11:29 AM EDT Tamera Benavides CHEMICAL ENGINEERING TECHNOLOGIST LAB BLOOD ORDERABLES Final R esult [facility] [address] [place] [address], * ECG 12 lead (02/16/2025 8:47 AM EDT) Ventricular Rate ECG 80 BPM GEMUSE Atrial Rate 416 BPM GEMUSE QRS Duration 78 ms GEMUSE Q-T Interval 400 ms GEMUSE QTc 461 ms GEMUSE R [place] 24 degrees GEMUSE T [place] 1 degrees GEMUSE ECG Interpretation Atrial fibrillation Abnormal ECG When compared with ECG of 24-AUG-2024 16:18, Questionable change in QRS axis Confirmed by MARANDA MALAVE ([id number]) on 02/16/2025 11:00:04 AM GEMUSE 02/16/2025 8:47 AM EDT 02/16/2025 11:00 AM EDT Tamera Benavides CHEMICAL ENGINEERING TECHNOLOGIST ECG ORDERABLES Final Result GEMUSE * Falls Risk Assessment (12/31/2023) Pathologist [facility] Falls Risk Assessment abstracted Historical Provider MD HEALTH MAINTENANCE Final Result * Depression Screening (12/31/2023) Pathologist [facility] Depression Screening abstracted [facility] Provider MD HEALTH MAINTENANCE Final Result * Hepatitis C Screening (04/23/2017) Pathologist [facility] Hepatitis C Screening abstracted [facility] Provider MD HEALTH MAINTENANCE Final Result * Colonoscopy (11/25/2013) Colonoscopy No interpreta tion,abstr acted Anatomical Region Laterality Modality Other Historical Provider HEALTH MAINTENANCE Final Result from Last 3 Months or Most Recently Relevant to Health Maintenance Insurance DR GRACE [address] [place] [phone] [employer] MED[employer] Care Teams Field Auto Appraiser Relationship Specialty Start Date End Date Heather Lai MD [address] [place] [id number] PCP - General Internal Medicine 08/24/24
[2025-05-19 14:27] LABS: MANUAL DIFF FLAG NO
[2025-05-19 14:45] LABS: Alanine Aminotransferase 74 U/L (0-40); Albumin Level 4.4 g/dL (3.5-5.0); Alkaline Phosphatase 90 U/L (39-117); Anion Gap 16 (12-20); Aspartate Amino Transferase 97 U/L (5-37); Blood Urea Nitrogen 18 mg/dL (9-16); Calcium 8.7 mg/dL (8.4-10.2); Carbon Dioxide 22 mmol/L (22-29); Chloride 92 mmol/L (96-108); Creatinine Clr Calc Pharmacy 76.0; Estimated Glomerular Filt Rate > 60; Potassium 3.9 mmol/L (3.3-5.1); Sodium 126 mmol/L (135-145); Total Protein 6.9 g/dL (6.5-8.0)
[2025-05-19 14:53] LABS: Troponin-I High Sensitivity 2.8 ng/L (<3.5-35.0)
[2025-05-19 14:54] LABS: Hematocrit 38.2 % (42.0-52.0); Hemoglobin 13.9 g/dl (14.0-18.0); Imm Gran Abs Auto 0.03 X10*3/uL (0.00-0.03); Imm Gran Pct Auto 0.4 % (0.0-0.4); Lymphocytes Absolute Auto 2.4 X10*3/uL (1.2-4.9); Mean Corpuscular Hemoglobin 34.4 pg (27.0-33.0); Mean Corpuscular Volume 94.6 fL (80.0-98.0); NRBC Abs Auto 0.000 X10*3/uL (0.0-0.012); NRBC Pct Auto 0.0 /100WBC (0.0-0.2); Platelet Count 161 X10*3/uL (160-400); Red Blood Count 4.04 X10*6/uL (4.60-5.80); White Blood Count 7.6 X10*3/uL (4.8-10.8)
[2025-05-19 14:55] LABS: Mean Corpuscular HGB Conc 36.4 g/dl (31.0-36.0)
[2025-05-19 16:46] VITALS: BP 136/67; PULSE 101; RESP 16; TEMP 36.7; O2SAT 93
[2025-05-19 18:18] VITALS: BP 139/96; PULSE 59; RESP 16; TEMP 36.3; O2SAT 99
[2025-05-19 19:29] VITALS: BP 120/56; PULSE 63; TEMP 36.3; O2SAT 96
[2025-05-19 22:23] VITALS: BP 125/69; PULSE 66; RESP 18; TEMP 37.1; O2SAT 97
[2025-05-19 22:51] LABS: Anion Gap 15 (12-20); Blood Urea Nitrogen 16 mg/dL (9-16); Calcium 8.8 mg/dL (8.4-10.2); Carbon Dioxide 25 mmol/L (22-29); Chloride 97 mmol/L (96-108); Creatinine Clr Calc Pharmacy 84.8; Estimated Glomerular Filt Rate > 60; Potassium 3.6 mmol/L (3.3-5.1); Sodium 133 mmol/L (135-145)
[2025-05-19 23:29] VITALS: BP 125/69; PULSE 66; RESP 18; TEMP 37.1; O2SAT 97
== END 2025-05-19 23:31 | disposition home or self-care (01) ==
PROVIDERS: Physician Assistant; Registered Nurse Emergency; Emergency Provider Emergency Medicine Emergency Medical Services; PCP Nurse Practitioner Family
DX: E87.1 Hypo-osmolality and hyponatremia (principal); F10.129 Alcohol abuse with intoxication, unspecified; Y90.8 Blood alcohol level of 240 mg/100 ml or more; R42 Dizziness and giddiness; R53.1 Weakness; I10 Essential (primary) hypertension; E78.5 Hyperlipidemia, unspecified; I48.91 Unspecified atrial fibrillation; Z79.01 Long term (current) use of anticoagulants; Z79.899 Other long term (current) drug therapy
CPT/HCPCS: 36415; 70450; 80048; 80053; 80307; 84484; 85025; 93005; 96360; 96361; 99284; 99285

== ENCOUNTER → 2025-05-19 14:33 | Outpatient (BNV) | payer MEDICARE, OTHER, SELFPAY | PROVIDERS: Emergency Provider Emergency Medicine Emergency Medical Services; PCP Nurse Practitioner Family; Visit Provider Internal Medicine | DX: I48.91 Unspecified atrial fibrillation (principal) | CPT/HCPCS: 93010 ==

== ENCOUNTER → 2025-05-19 14:34 | Outpatient (BNV) | payer MEDICARE, OTHER, SELFPAY | PROVIDERS: Emergency Provider Emergency Medicine Emergency Medical Services; PCP Nurse Practitioner Family; Visit Provider Radiology Diagnostic Radiology | DX: R42 Dizziness and giddiness (principal) | CPT/HCPCS: 70450 ==